=== PATIENT | female | born 1950 | race Caucasian/White ===

== ENCOUNTER 2021-12-15 22:21 | Observation (INO) | payer OTHER, SELFPAY ==
--- NOTE | ~2021-12-15 | CT_ITS ---
EXAMINATION: CTA brain carotid DATE: 12/16/2021 09:03 INDICATION: Stroke. TECHNIQUE: Computed tomographic angiography (CTA) of the head was performed without and with 100 mL O mnipaque-350 intravenous contrast. CTA of the neck was performed with intravenous contrast. Automated exposure control and iterative reconstruction technique were employed. The dose-length product was 1 514.65 mGy-cm. Maximum intensity projection and volume rendered 3D-reconstructions were created by lubna romero technologist on a separate workstation. COMPARISON: Head CT 02/07/2005, brain MRI 02/22/2015 FINDINGS: HEAD CTA: There is chronic encephalomalacia in left temporal lobe. There are changes of left-sided cr aniotomy. There is a 2.8 x 2.2 x 1.4 cm enhancing extra-axial mass left anterolateral to the russ, co nsistent with a meningioma. There are scattered areas of low attenuation in the cerebral white matter , which is within normal limits for the patient's age. There is an old lacunar infarct in right thal amus. There is no acute ischemic infarct or intracranial hemorrhage. The ventricles are normal in siz e. There is mild mucosal thickening in the paranasal sinuses. There are changes of left mastoidectomy . There is material in left tympanic cavity abutting the ossicles. There are likely changes of right ocular lens replacement surgery. The vertebral arteries are codominant. There is no significant steno sis of basilar artery or the posterior cerebral arteries. There is no significant stenosis of the int racranial internal carotid arteries or anterior or middle cerebral arteries. Anterior communicating a rtery is normal. Posterior communicating arteries are normal. There is no aneurysm. NECK CTA: There is mild emphysema. There are small pleural effusions. There is total occlusion of pro ximal left subclavian artery. There is no significant stenosis of the vertebral arteries. There is pl aque in the proximal internal carotid arteries. There is 52% stenosis of the proximal right internal carotid artery relative to normal distal artery lumen diameter (NASCET criteria). There is 41% stenos is of the proximal left internal carotid artery relative to normal distal artery lumen diameter. Ther e is mild cervical spondylosis. IMPRESSION: 1. Stable 2.8 cm left petrous ridge meningioma. 2. Chronic encephalomalacia in left temporal lobe. 3. Old lacunar infarct in right thalamus. 4. No aneurysm or significant intracranial internal stenosis. 5. 52% stenosis of the proximal right internal carotid artery relative to normal distal artery lumen diameter (NASCET criteria). 6. 41% stenosis of the proximal left internal carotid artery relative to normal distal artery lumen d iameter. 7. 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 8. Mild emphysema. Reviewed, dictated and finalized at location A. IMPRESSION: 1. Stable 2.8 cm left petrous ridge meningioma. 2. Chronic encephalomalacia in left temporal lobe. 3. Old lacunar infarct in right thalamus. 4. No aneurysm or significant intracranial internal stenosis. 5. 52% stenosis of the proximal right internal carotid artery relative to solo l distal artery lumen diameter (NASCET criteria). 6. 41% stenosis of the proximal left internal carotid artery relative to normal distal artery lumen diameter. 7. 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 8. Mild emphysema.
--- NOTE | ~2021-12-15 | XR_ITS ---
EXAMINATION: XR chest 2V Exam Date/Time: 12/15/2021 22:49 CDT HISTORY: weakness Comparison: 05/12/2015. RESULT: Lines, tubes, and devices: None. Lungs and pleura: Senescent changes. Cardiomediastinal silhouette: Stable. Other: No acute osseous or upper abdominal finding. IMPRESSION: No acute cardiopulmonary process. Reviewed, dictated and finalized at location K.
[2021-12-15 22:21] VITALS: BP 164/68; PULSE 64; RESP 18; TEMP 36.7; O2SAT 97
--- NOTE | 2021-12-15 22:32 | ECG_ITS ---
Measurements Intervals [place] Rate: 67 P: 57 MS: 188 QRS: 60 QRSD: 89 T: 70 QT: 413 QTc: 436 Interpretive Statements SINUS RHYTHM BASELINE ARTIFACT- I, II, III, AVR, AVL, AVF, V1-V6 NORMAL ECG NO PREVIOUS ECG AVAILABLE FOR COMPARISON Electronically Signed On 12-16-2021 6:54:24 CDT by Magdy Black D.O.
[2021-12-15 22:54] LABS: Basophils Percent Auto 0.4 % (0.2-1.2); Eosinophils Absolute Auto 0.4 K/mm3 (0-0.3); Eosinophils Percent Auto 4.1 % (0-4.4); Hemoglobin 13.6 g/dL (12.0-15.0); Immature Granulocyte Absolute 0.03 K/mm3 (0.00-0.031); Immature Granulocyte Percent A 0.3 % (0-0.5); Lymphocytes Absolute Auto 4.01 K/mm3 (0.9-3.2); Lymphocytes Percent Auto 42.5 % (18.3-44.2); Mean Corpuscular HGB Conc 32.4 g/dl (32-36); Mean Corpuscular Hemoglobin 31.1 pg (26-34); Mean Corpuscular Volume 96.1 fl (80-100); Mean Platelet Volume 11.8 fl (7.4-10.4); Monocytes Absolute Auto 0.7 K/mm3 (0.1-0.6); Monocytes Percent Auto 7.7 % (2.6-8.5); Neutrophils Absolute Auto 4.2 K/mm3 (1.3-6.7); Platelet Count Result 266 k/mm3 (150-375); Red Blood Count 4.37 M/mm3 (4.2-5.4); Red Cell Distribution Width 13.7 % (11.5-14.5); White Blood Count 9.4 K/mm3 (4.5-10.0)
--- NOTE | 2021-12-15 22:57 | PC.NURSE ---
pt in CT
[2021-12-15 23:06] LABS: Alanine Aminotransferase 21 U/L (6-35); Albumin Level 4.3 g/dL (3.5-5.1); Alkaline Phosphatase 52 U/L (38-126); Anion Gap 8 mmol/L (8-16); Aspartate Amino Transferase 25 U/L (14-36); Bilirubin,Total 0.4 mg/dL (0.2-1.3); Blood Urea Nitrogen 17 mg/dL (7-17); Calcium 9.2 mg/dL (8.4-10.2); Carbon Dioxide 29 mmol/L (22-30); Chloride 108 mmol/L (98-107); Estimated CRCL calculation 57 ml/min; Estimated Glomerular Filt Rate > 60; Glucose 122 mg/dL (65-110); Sodium 145 mmol/L (137-145)
[2021-12-15 23:16] LABS: Appearance Urine Clear (Clear); Bilirubin Urine Negative (Negative); Blood Urine Negative (Negative); Color Urine Yellow (Yellow); Glucose Urine UA Negative (Negative); Ketones Urine Negative (Negative); Leukocyte Esterase Ur 2+ LEU/UL (Negative); Nitrate Urine Positive (Negative); Protein Urine Negative (Negative); Specific Grav Ur 1.015 (1.001-1.035); Urobilinogen Urine 0.2 mg/dL (<2.0)
[2021-12-15 23:27] LABS: Add Urine Microscopic? YES; Bacteria Urine 4+ /hpf; Mucus Urine Rare /lpf
[2021-12-16] VITALS (10 sets, daily range): BP systolic 136–152; BP diastolic 53–70; PULSE 57–78; RESP 16–18; TEMP 35.7–36.6; O2SAT 94–97; BMI 28.4
--- NOTE | 2021-12-16 01:17 | ED.WEAKNESS ---
HPI - Weakness General Chief complaint: Weakness Stated complaint: L arm weakness History of Present Illness HPI Narrative: Patient is a 71-year-old female who presents ER with reports of weakness. Apparently patient's custodial she began having hallucinations thinking that there were police officers outside coming after him. There is then concern for possible strokelike symptom so EMS was called. Patient has history of previous CVA resulting in right-sided deficits. Patient reports no pain at this time. No additional concerns. Patient is unsure if she was having hallucinations but recalls nursing staff forgot therapy and please officers related to her visit. Related Data Home Medications Medication Instructions Recorded Confirmed Lactobacillus acidophilus 1 10 mg PO QAM 12/16/21 12/16/21 billion cell capsule (Probiotic Gold Acidophilus) albuterol sulfate 90 mcg/actuation 2 puff inhalation Q4-5H PRN Dyspnea 12/16/21 12/16/21 aerosol inhaler atorvastatin 40 mg tablet 40 mg PO QAM 12/16/21 12/16/21 cetirizine 10 mg tablet (Zyrtec) 10 mg PO QAM 12/16/21 12/16/21 citalopram 10 mg tablet 10 mg PO QAM 12/16/21 12/16/21 diclofenac potassium 50 mg tablet 50 mg PO BID 12/16/21 12/16/21 diphenhydramine HCl 25 mg tablet 25 mg PO QID PRN itching 12/16/21 12/16/21 (Allergy (diphenhydramine)) famotidine 20 mg tablet 20 mg PO BID 12/16/21 12/16/21 fenofibrate 160 mg tablet 160 mg PO QAM 12/16/21 12/16/21 fluticasone propionate 50 1 spray intranasal BID 12/16/21 12/16/21 mcg/actuation nasal spray,suspension lacosamide 100 mg tablet 100 mg PO HS 12/16/21 12/16/21 lacosamide 200 mg tablet 200 mg PO QAM 12/16/21 12/16/21 levetiracetam 500 mg tablet 500 mg PO BID 12/16/21 12/16/21 levothyroxine 200 mcg tablet 200 mcg PO QAM 12/16/21 12/16/21 loperamide 2 mg capsule 2 mg PO Q4H PRN Diarrhea 12/16/21 12/16/21 pramipexole 0.25 mg tablet 0.25 mg PO QPM 12/16/21 12/16/21 ropinirole 0.5 mg tablet 0.5 mg PO BID 12/16/21 12/16/21 tizanidine 2 mg tablet 2 mg PO BID PRN Muscle Spasm 12/16/21 12/16/21 tramadol 50 mg tablet 50 mg PO Q8-10H PRN Pain 12/16/21 12/16/21 Allergies Allergy/AdvReac Type Severity Reaction Status Date / Time Penicillins AdvReac Unknown Abdominal Verified 12/16/21 05:28 Pain morphine AdvReac Rash Verified 12/16/21 04:18 phenytoin [From Dilantin] AdvReac Rash Verified 12/16/21 04:15 Review of Systems Review of Systems: All systems reviewed & are unremarkable except as noted in HPI and below Constitutional: Constitutional: Denies chills, Denies fatigue and Denies fever(s) ENT: Denies nasal congestion and Denies sore throat Cardiovascular: Cardiovascular: Denies chest pain, Denies rapid heart rate and Denies radiating jaw, neck or arm pain Respiratory: Respiratory: Denies cough, Denies dyspnea and Denies wheezing Gastrointestinal: Gastrointestinal: Denies abdominal pain, Denies nausea and Denies vomiting Integumentary/Breasts: Skin/Breast: Denies erythema and Denies rash Neurologic: Denies syncope, Denies headache(s) and Reports focal weakness (Chronic right-sided weakness) [facility] Past Medical History Medical History (Updated 12/16/21 @ 05:51 by Juve Gilman MD) CVA (cerebral vascular accident) DJD (degenerative joint disease) Dyslipidemia Restless leg syndrome Surgical History Surgical History (Updated 12/16/21 @ 05:46 by Juve Gilman MD) No pertinent past surgical history Social History Social History Years smoked: 55 Smoking status: Current every day smoker Tobacco type: cigarettes Alcohol intake: never Substance use: never Has the Lack of Transportation Kept You From Medical Appointments or From Getting Medications?: No Within the Past 12 Months, Were You Worried Whether Your Food Would Run Out Before You Got Money to Buy More?: Never True What is Your Housing Situation Today?: I Have Housing Are You Worried That in the Next 2 Months, You May Not Have
--- NOTE | 2021-12-16 04:08 | PM.IMHP ---
H&P: HPI History of Present Illness Date/Time: 12/16/21 04:08 Chief Complaint: altered mental status Narrative: This is a 71-year-old female [facility] resident Past medical history significant for restless legs syndrome, seizure disorder, hypothyroidism, chronic pain, dyslipidemia, patient was brought for evaluation due to altered mental status, unable to give any history. Preliminary workup was essentially nonrevealing. Patient is been admitted for further evaluation management and treatment. a chest x-ray was reported as: IMPRESSION: No acute cardiopulmonary process. Review of Systems Review of Systems: ROS unobtainable: Yes unobtainable due to mental status ( confusion, restlessness, delirium) PMF[facility] Social History Social History Years smoked: 55 Smoking status: Current every day smoker Tobacco type: cigarettes Meds Home Medications and Allergies Home Medications Medication Instructions Recorded Confirmed Type albuterol sulfate 90 mcg/actuation 2 puff inhalation Q4-5H PRN Dyspnea 12/16/21 12/16/21 History aerosol inhaler atorvastatin 40 mg tablet 40 mg PO QAM 12/16/21 12/16/21 History cetirizine 10 mg tablet (Zyrtec) 10 mg PO QAM 12/16/21 12/16/21 History citalopram 10 mg tablet 10 mg PO QAM 12/16/21 12/16/21 History diclofenac potassium 50 mg tablet 50 mg PO BID 12/16/21 12/16/21 History diphenhydramine HCl 25 mg tablet 25 mg PO QID PRN itching 12/16/21 12/16/21 History (Allergy (diphenhydramine)) famotidine 20 mg tablet 20 mg PO BID 12/16/21 12/16/21 History fenofibrate 160 mg tablet 160 mg PO QAM 12/16/21 12/16/21 History fluticasone propionate 50 1 spray intranasal BID 12/16/21 12/16/21 History mcg/actuation nasal spray,suspension lacosamide 100 mg tablet 100 mg PO HS 12/16/21 12/16/21 History lacosamide 200 mg tablet 200 mg PO QAM 12/16/21 12/16/21 History levetiracetam 500 mg tablet 500 mg PO BID 12/16/21 12/16/21 History levothyroxine 200 mcg tablet 200 mcg PO QAM 12/16/21 12/16/21 History pramipexole 0.25 mg tablet 0.25 mg PO QPM 12/16/21 12/16/21 History ropinirole 0.5 mg tablet 0.5 mg PO BID 12/16/21 12/16/21 History tizanidine 2 mg tablet 2 mg PO BID PRN Muscle Spasm 12/16/21 12/16/21 History tramadol 50 mg tablet 50 mg PO Q8-10H PRN Pain 12/16/21 12/16/21 History Allergies Allergy/AdvReac Type Severity Reaction Status Date / Time Penicillins AdvReac Unknown Abdominal Unverified 12/16/21 00:46 Pain morphine AdvReac Rash Verified 12/16/21 04:18 phenytoin [From Dilantin] AdvReac Rash Verified 12/16/21 04:15 Vital Signs Vital Signs - 24 hr 12/15/21 22:21 Temperature 98.0 F Pulse Rate 64 Respiratory Rate 18 Blood Pressure 164/68 H Pulse Oximetry 97 Exam Narrative: patient is laying in a stretcher thrashing about Const: General: comfortable, no acute distress, well developed, alert, awake and average body habitus Nutritional Appearance: average body habitus Orientation/consciousness: oriented to person HENMT: Head: normal to inspection, normocephalic and atraumatic Ears: hearing grossly normal bilaterally Face/Nose/Sinus: normal facial exam Face and sinus: normal facial exam Eyes: General: appearance normal, both eyes and all related structures Pupils: Equal, round and reactive pupils present EOM: EOMs intact bilaterally Neck: Neck: full ROM, no lymphadenopathy and no JVD Thyroid: thyroid normal Lymphatic: no lymphadenopathy noted Resp: Effort & Inspection: normal respiratory effort and able to speak in complete sentences Auscultation: clear to auscultation bilaterally Cardio: Jugular venous distension: no JVD Rate: regular rate Rhythm: regular rhythm Heart sounds: S1 normal heart sound present and S2 normal heart sound present GI: GI Palp: Yes Soft to palpation and Yes No hepatosplenomegaly present : General: Yes deferred Skin: Rashes: no rashes Wounds: no wounds Neuro: General: oriented to person and CN's II-XI intact bi
--- NOTE | 2021-12-16 04:10 | ADMGEN ---
This patient, Summer Whitaker, was admitted to Medical Room 342-01. Patient/family oriented to hospital policies and general routines including ID bracelet, bed and alarms, visiting hours, pain management, procedures, bathroom and other care routines, personal items, smoking policy, room service/diet, and visiting hours. Information on how to activate the Rapid Response Team has been discussed. Patient/Family are encouraged to report perceived risks to care and to ask questions if they do not understand what they are told or what they should do.
[2021-12-16 05:00] LABS: SARS-CoV-2 RNA PCR Negative
--- NOTE | 2021-12-16 07:33 | PM.IMPN ---
Progress Note: A&P Assessment and Plan (1) Restless leg syndrome: Code(s): G25.81 - Restless legs syndrome Status: Acute Assessment and Plan: continue ropinirole (2) Dyslipidemia: Code(s): E78.5 - Hyperlipidemia, unspecified Status: Acute Assessment and Plan: continue fenofibrate (3) DJD (degenerative joint disease): Code(s): M19.90 - Unspecified osteoarthritis, unspecified site Status: Acute Assessment and Plan: continue pain management (4) UTI (urinary tract infection): Code(s): N39.0 - Urinary tract infection, site not specified Status: Acute Assessment and Plan: continue to ceftriaxone 1g in 50 ml IVPB 100 mls/hr q24hr (5) Acute metabolic encephalopathy: Code(s): G93.41 - Metabolic encephalopathy Status: Acute Assessment and Plan: unclear etiology although patient on a quite significant amount of drugs could be related to polypharmacy CT of the head in progress CONTINUE TO MONITOR supportive care urine with positive nitrates patient received ceftriaxone in emergency room (6) Hypothyroid: Code(s): E03.9 - Hypothyroidism, unspecified Status: Acute Assessment and Plan: continue home levothyroxine TSH ordered with reflux T4 (7) Seizure: Code(s): R56.9 - Unspecified convulsions Status: Acute Assessment and Plan: Continue levetiracetam Plan 12/16/21 Patient is well and resting comfortably in bed. She is alert and oriented x3 today. Urine positive for nitrates and Leukocyte esterase. Patient prescribed 1g in 50 ml IVPB Q24hr. Due to patients AMS upon admission CTA of head and neck were ordered. Imaging did not show any acute process. Urine cultures are pending. Continue supportive care. Subjective Date/time seen: 12/16/21 07:33 Interval history: Patient is pleasant and resting comfortably in bed. Review of Systems Constitutional: Constitutional: Reports weakness ENT: Denies dysphagia, Denies nasal congestion and Reports nasal discharge Cardiovascular: Cardiovascular: Denies palpitations Respiratory: Respiratory: Denies chest congestion, Reports cough, Denies dyspnea and Denies dyspnea on exertion Gastrointestinal: Gastrointestinal: Denies abdominal pain, Denies constipation, Reports diarrhea, Reports nausea and Denies vomiting Genitourinary: Genitourinary: Denies hematuria, Denies nocturia, Denies dysuria, Denies pelvic pain, Denies flank pain and Reports urinary incontinence Musculoskeletal: Musculoskeletal: Reports back pain Comments: low back pain Neurologic: Reports Abnormal speech present and Reports abnormal gait Comments: Patient has history of abnormal gait and speech due to past CVA Exam Const: General: comfortable, no acute distress, well developed, alert, awake and average body habitus Nutritional Appearance: average body habitus Orientation/consciousness: oriented to person Other: Oriented to person, place, time. Does not know why she is in the hospital. HENMT: Head: normal to inspection, normocephalic and atraumatic Ears: hearing grossly normal bilaterally Face/Nose/Sinus: normal facial exam Face and sinus: normal facial exam Eyes: General: appearance normal, both eyes and all related structures EOM: EOMs intact bilaterally Neck: Neck: full ROM, no lymphadenopathy and no JVD Thyroid: thyroid normal Lymphatic: no lymphadenopathy noted Resp: Effort & Inspection: normal respiratory effort and able to speak in complete sentences Auscultation: clear to auscultation bilaterally Cardio: Jugular venous distension: no JVD Rate: regular rate Rhythm: regular rhythm Heart sounds: S1 normal heart sound present and S2 normal heart sound present GI: GI Palp: Yes Soft to palpation Auscultation: normal bowel sounds : General: Yes deferred Skin: General skin exam: normal color and no rashes or lesions noted Neuro: Genera
[2021-12-16] MEDS: ATORVASTATIN 40 MG TABLET PO (08:18)
[2021-12-16] MEDS: LEVOTHYROXINE SODIUM 100 MCG TABLET 200 MCG PO (08:18)
[2021-12-16] MEDS: DICLOFENAC SOD 25 MG TABLET.EC 50 MG PO ×2 (08:18→17:08)
[2021-12-16] MEDS: FLUTICASONE PROPIONATE 0.05% NA SPR 16 GM BTL (*BKC) 1 SPRAY NASAL ×2 (08:19→17:08)
[2021-12-16] MEDS: CITALOPRAM HYDROBROMIDE 10 MG TABLET PO (08:19)
[2021-12-16] MEDS: FENOFIBRATE 160 MG TABLET PO (08:19)
[2021-12-16] MEDS: LORATADINE 10 MG TABLET PO (08:20)
[2021-12-16] MEDS: FAMOTIDINE 20 MG TABLET PO ×2 (08:20→17:08)
[2021-12-16] MEDS: rOPINIRole HCL 0.5 MG TABLET PO ×2 (08:20→17:08)
[2021-12-16] MEDS: levETIRAcetam 500 MG TABLET PO ×2 (08:20→20:31)
[2021-12-16] MEDS: LACOSAMIDE (*CRX) 200 MG TABLET PO (08:24)
[2021-12-16 08:40] LABS: Hematocrit 42.3 % (37.0-47.0); Hemoglobin 13.6 g/dL (12.0-15.0); Mean Corpuscular HGB Conc 32.2 g/dl (32-36); Mean Corpuscular Hemoglobin 30.7 pg (26-34); Mean Corpuscular Volume 95.5 fl (80-100); Mean Platelet Volume 11.8 fl (7.4-10.4); Platelet Count Result 267 k/mm3 (150-375); Red Blood Count 4.43 M/mm3 (4.2-5.4); Red Cell Distribution Width 13.5 % (11.5-14.5); White Blood Count 9.4 K/mm3 (4.5-10.0)
--- NOTE | 2021-12-16 08:40 | PC.NURSE ---
Patient off of unit to CT scan
[2021-12-16 08:48] LABS: Anion Gap 11 mmol/L (8-16); Blood Urea Nitrogen 13 mg/dL (7-17); Calcium 9.1 mg/dL (8.4-10.2); Carbon Dioxide 28 mmol/L (22-30); Chloride 108 mmol/L (98-107); Estimated CRCL calculation 57 ml/min; Estimated Glomerular Filt Rate > 60; Glucose 142 mg/dL (65-110); Potassium 4.2 mmol/L (3.4-5.0); Sodium 147 mmol/L (137-145)
--- NOTE | 2021-12-16 09:19 | PC.NURSE ---
Patient returned to unit
[2021-12-16] MEDS: ACIDOPHILUS/BULGARICUS CHEWABLE TABLET 1 TABLET PO (12:07)
[2021-12-16] MEDS: PRAMIPEXOLE 0.25 MG TABLET PO (17:08)
[2021-12-16] MEDS: LACOSAMIDE (*CRX) 100 MG TABLET PO (20:31)
[2021-12-17 00:11] VITALS: BP 144/59; PULSE 61; RESP 16; TEMP 37; O2SAT 96
[2021-12-17 05:41] VITALS: BP 158/66; PULSE 68; RESP 18; TEMP 36.4; O2SAT 97
[2021-12-17] MEDS: LEVOTHYROXINE SODIUM 100 MCG TABLET 200 MCG PO (05:58)
[2021-12-17] MEDS: LACOSAMIDE (*CRX) 200 MG TABLET PO (05:58)
[2021-12-17 06:13] LABS: Basophils Percent Auto 0.5 % (0.2-1.2); Eosinophils Absolute Auto 0.3 K/mm3 (0-0.3); Eosinophils Percent Auto 3.4 % (0-4.4); Hematocrit 39.1 % (37.0-47.0); Hemoglobin 12.7 g/dL (12.0-15.0); Immature Granulocyte Absolute 0.03 K/mm3 (0.00-0.031); Immature Granulocyte Percent A 0.3 % (0-0.5); Lymphocytes Percent Auto 47.7 % (18.3-44.2); Mean Corpuscular HGB Conc 32.5 g/dl (32-36); Mean Corpuscular Hemoglobin 30.6 pg (26-34); Mean Corpuscular Volume 94.2 fl (80-100); Mean Platelet Volume 11.5 fl (7.4-10.4); Monocytes Absolute Auto 0.7 K/mm3 (0.1-0.6); Monocytes Percent Auto 7.4 % (2.6-8.5); Neutrophils Absolute Auto 3.6 K/mm3 (1.3-6.7); Neutrophils Percent Auto 40.7 % (45.5-73.1); Platelet Count Result 253 k/mm3 (150-375); Red Blood Count 4.15 M/mm3 (4.2-5.4); Red Cell Distribution Width 13.6 % (11.5-14.5); White Blood Count 8.8 K/mm3 (4.5-10.0)
[2021-12-17 06:29] LABS: Alanine Aminotransferase 20 U/L (6-35); Albumin Level 3.8 g/dL (3.5-5.1); Alkaline Phosphatase 48 U/L (38-126); Anion Gap 8 mmol/L (8-16); Aspartate Amino Transferase 25 U/L (14-36); Bilirubin,Total 0.3 mg/dL (0.2-1.3); Blood Urea Nitrogen 14 mg/dL (7-17); Calcium 8.5 mg/dL (8.4-10.2); Carbon Dioxide 27 mmol/L (22-30); Chloride 108 mmol/L (98-107); Estimated CRCL calculation 51 ml/min; Estimated Glomerular Filt Rate > 60; Glucose 122 mg/dL (65-110); Magnesium 1.9 mg/dL (1.6-2.3); Potassium 3.5 mmol/L (3.4-5.0); Sodium 143 mmol/L (137-145)
[2021-12-17] MEDS: FLUTICASONE PROPIONATE 0.05% NA SPR 16 GM BTL (*BKC) 1 SPRAY NASAL (10:32)
[2021-12-17] MEDS: DICLOFENAC SOD 25 MG TABLET.EC 50 MG PO (10:32)
[2021-12-17] MEDS: ENOXAPARIN 40 MG/0.4 ML SYRINGE SUB-Q (10:33)
[2021-12-17] MEDS: FENOFIBRATE 160 MG TABLET PO (10:33)
[2021-12-17] MEDS: FAMOTIDINE 20 MG TABLET PO (10:33)
[2021-12-17] MEDS: LORATADINE 10 MG TABLET PO (10:33)
[2021-12-17] MEDS: CITALOPRAM HYDROBROMIDE 10 MG TABLET PO (10:33)
[2021-12-17] MEDS: levETIRAcetam 500 MG TABLET PO (10:33)
[2021-12-17] MEDS: ATORVASTATIN 40 MG TABLET PO (10:33)
[2021-12-17] MEDS: ACIDOPHILUS/BULGARICUS CHEWABLE TABLET 1 TABLET PO (10:33)
[2021-12-17] MEDS: rOPINIRole HCL 0.5 MG TABLET PO (10:34)
[2021-12-17 12:00] VITALS: BP 127/72; PULSE 71; RESP 20; TEMP 36.5; O2SAT 97
--- NOTE | 2021-12-17 12:54 | PM.DS ---
DS: Admitting Diagnosis Discharge Date 12/17/21 Admitting Diagnosis acute metabolic encephalopathy DS: Discharge Diagnosis Discharge Diagnosis (1) Acute metabolic encephalopathy: Code(s): G93.41 - Metabolic encephalopathy Status: Acute Assessment and Plan: could be related to polypharmacy CT of head no acute findings CONTINUE TO MONITOR supportive care urine with positive nitrates (2) UTI (urinary tract infection): Code(s): N39.0 - Urinary tract infection, site not specified Status: Acute Assessment and Plan: patient started on cefdinir 300mg q12 hr x5 days pt symptoms are improved urine cultures pending (3) Restless leg syndrome: Code(s): G25.81 - Restless legs syndrome Status: Acute Assessment and Plan: continue ropinirole (4) Dyslipidemia: Code(s): E78.5 - Hyperlipidemia, unspecified Status: Acute Assessment and Plan: continue fenofibrate (5) DJD (degenerative joint disease): Code(s): M19.90 - Unspecified osteoarthritis, unspecified site Status: Acute Assessment and Plan: continue pain management (6) Hypothyroid: Code(s): E03.9 - Hypothyroidism, unspecified Status: Acute Assessment and Plan: continue home levothyroxine (7) Seizure: Code(s): R56.9 - Unspecified convulsions Status: Acute Assessment and Plan: Continue levetiracetam DS: Summary Hospital Course Reason for hospitalization: metabolic encephalopathy Hospital Course: Patient presented to the floor agitated and unable to respond to questions. She was admitted under acute metabolic encephalopathy diagnosis. CT of head and neck did not reveal any acute process. Lab results showed UTI with positive nitrites and leukocytes. Pt started on ceftriaxone 1 g IVPB q24hr. Once antibiotics were started patient regained awareness to person, place and time. On final day in hospital patient reported feeling much better and eager to go home. Urine cultures are still pending and pt will be contacted if antibiotic needs to be changed. Patient being sent home with cefdinir 300 mg q12hr x5 days. Status at Discharge Functional status at discharge: uses cane/walker Time Spent with Patient Time attestation: Total time spent providing and/or coordinating discharge services: Time spent: Greater than 30 minutes Exam Const: General: comfortable, no acute distress, well developed, alert, awake and average body habitus Nutritional Appearance: average body habitus Orientation/consciousness: oriented to person Other: Oriented to person, place, time. Does not know why she is in the hospital. HENMT: Head: normal to inspection, normocephalic and atraumatic Ears: hearing grossly normal bilaterally Face/Nose/Sinus: normal facial exam Face and sinus: normal facial exam Eyes: General: appearance normal, both eyes and all related structures Pupils: Equal, round and reactive pupils present EOM: EOMs intact bilaterally Neck: Neck: full ROM, no lymphadenopathy and no JVD Thyroid: thyroid normal Lymphatic: no lymphadenopathy noted Resp: Effort & Inspection: normal respiratory effort and able to speak in complete sentences Auscultation: clear to auscultation bilaterally Cardio: Jugular venous distension: no JVD Rate: regular rate Rhythm: regular rhythm Heart sounds: S1 normal heart sound present and S2 normal heart sound present GI: Auscultation: normal bowel sounds : General: Yes deferred Skin: General skin exam: normal color and no rashes or lesions noted Rashes: no rashes Wounds: no wounds Neuro: General: oriented to person and CN's II-XI intact bilaterally Cranial nerves: Yes CN's II-XII intact bilaterally and Yes Equal, round and reactive pupils present Cognition (Neuro): abnormal cognition ( delirious, restless) Speech: normal speech and Abnormal speech present Gait
== END 2021-12-17 16:10 ==
LOC: ANHED 12-16 01:53 → ANH3MED 12-16 05:50
PROVIDERS: Admitting Provider Internal Medicine; Emergency Provider Emergency Medicine; PCP Internal Medicine; Visit Provider Internal Medicine Critical Care Medicine
DX: G93.41 Metabolic encephalopathy (principal); N39.0 Urinary tract infection, site not specified; G25.81 Restless legs syndrome; E78.5 Hyperlipidemia, unspecified; M19.90 Unspecified osteoarthritis, unspecified site; E03.9 Hypothyroidism, unspecified; R56.9 Unspecified convulsions; D32.0 Benign neoplasm of cerebral meninges; G93.89 Other specified disorders of brain; J43.9 Emphysema, unspecified; R53.1 Weakness; I65.23 Occlusion and stenosis of bilateral carotid arteries; Z20.822 Contact with and (suspected) exposure to COVID-19; R44.3 Hallucinations, unspecified; I69.351 Hemiplegia and hemiparesis following cerebral infarction affecting right dominant side; F17.210 Nicotine dependence, cigarettes, uncomplicated; Z79.51 Long term (current) use of inhaled steroids; Z79.891 Long term (current) use of opiate analgesic; Z79.899 Other long term (current) drug therapy
CPT/HCPCS: 36415; 70496; 70498; 71046; 80048; 80053; 81001; 83735; 85025; 85027; 87086; 87088; 93005; 96365; 96372; 99285; A9270; G0378; G0379; J0696; J1650; Q9967; U0003; U0005

== ENCOUNTER 2023-06-09 18:18 | Inpatient (IN) | payer OTHER, SELFPAY ==
[2023-06-09] VITALS (17 sets, daily range): BP systolic 124–168; BP diastolic 54–92; PULSE 68–86; RESP 14–22; TEMP 36.6–36.8; O2SAT 94–100
--- NOTE | ~2023-06-09 | XR_ITS ---
EXAMINATION: XR chest 1V DATE: 06/09/2023 19:26 INDICATION: Stroke. Right leg weakness. TECHNIQUE: A single frontal view of the chest was obtained. COMPARISON: Chest 2 views 12/15/2021 FINDINGS: There is no pneumonia, pleural effusion, or pneumothorax. The heart size is normal. IMPRESSION: 1. No acute cardiopulmonary disease. Reviewed, dictated and finalized at location E.
--- NOTE | ~2023-06-09 | MR_ITS ---
EXAMINATION: MR brain/brain stem wo/w con DATE: 06/10/2023 12:17 INDICATION: Stroke. TECHNIQUE: Magnetic resonance imaging (MRI) of the brain and brainstem was performed without and with 14 mL MultiHance intravenous contrast. COMPARISON: Brain MRI 02/22/15, head CT 06/09/23 FINDINGS: There is no acute ischemic infarct or intracranial hemorrhage. There is chronic encephaloma lacia involving left temporal lobe. There is chronic encephalomalacia involving left side of the russ and left middle cerebellar peduncle. There are scattered areas of nonspecific increased T2-weighted signal intensity in the cerebral white matter, which is within normal limits for the patient's age. T here is a 2.1 x 2.3 x 1.6 cm left petrous ridge meningioma. There is an old infarct in the right thal amus. The ventricles are normal in size. There is mucosal thickening in the paranasal sinuses. There are likely changes of right ocular lens replacement surgery. There are bilateral mastoid effusions. T here are changes of left-sided craniotomy and mastoidectomy. IMPRESSION: 1. 2.3 cm left petrous ridge meningioma, stable from 02/22/15. 2. Chronic encephalomalacia involving left temporal lobe, russ, and left middle cerebellar peduncle. 3. Old lacunar infarct in the right thalamus. Reviewed, dictated and finalized at location A.
--- NOTE | ~2023-06-09 | CT_ITS ---
EXAMINATION: CTA brain carotid DATE: 06/09/2023 19:24 INDICATION: Right leg numbness. TECHNIQUE: Computed tomographic angiography (CTA) of the head was performed without and with 100 mL O mnipaque-350 intravenous contrast. CTA of the neck was performed with intravenous contrast. Automated exposure control and iterative reconstruction technique were employed. The dose-length product was 1 618.23 mGy-cm. Maximum intensity projection and volume rendered 3D-reconstructions were created by lubna romero technologist on a separate workstation. COMPARISON: CTA head and neck 12/16/2021 FINDINGS: HEAD CTA: There is chronic encephalomalacia in left temporal lobe. There are changes of left-sided cr aniotomy. There is a 2.5 x 2.2 x 1.6 cm enhancing extra-axial mass anterolateral to the russ on the l eft, consistent with a meningioma. There are scattered areas of low attenuation in the cerebral white matter, which is within normal limits for the patient's age. There is an old lacunar infarct in the right thalamus. There is no acute ischemic infarct or intracranial hemorrhage. The ventricles are nor mal in size. There is a right mastoid effusion. There are changes of left mastoidectomy. There is mat erial in the post-mastoidectomy space, tympanic cavity, and external artery canal. There is mucosal t hickening in the paranasal sinuses. There are likely changes of right ocular lens replacement surgery . The vertebral arteries are codominant. There is no significant stenosis of basilar artery or the po sterior cerebral arteries. There is no significant stenosis of intracranial internal carotid arteries or anterior or middle cerebral arteries. Anterior communicating artery is normal. The posterior comm unicating arteries are normal. There is no aneurysm. NECK CTA: There is mild emphysema. There is mild scarring at the lung apices. There are no pathologic ally enlarged lymph nodes. There is no significant stenosis of the vertebral arteries. There is total occlusion of proximal left subclavian artery. There is plaque in the proximal internal carotid arter ies. There is 31% stenosis of the proximal right internal carotid artery relative to normal distal ar [place] lumen diameter (NASCET criteria). There is 38% stenosis of the proximal left internal carotid ar davis relative to normal distal artery lumen diameter. There is moderate cervical spondylosis. IMPRESSION: 1. 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 2. Chronic encephalomalacia in left temporal lobe. 3. Old lacunar infarct in right thalamus. 4. No aneurysm or significant intracranial arterial stenosis. 5. 31% stenosis of the proximal right internal carotid artery relative to normal distal artery lumen diameter (NASCET criteria). 6. 38% stenosis of the proximal left internal carotid artery relative to normal distal artery lumen d iameter. 7. 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 8 . Mild emphysema. Reviewed, dictated and finalized at location E. IMPRESSION: 1. 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 2. Chronic encephalomalacia in left temporal lobe. 3. Old lacunar infarct in right thalamus. 4. No aneurysm or significant intracranial arterial stenosis. 5. 31% stenosis of the proximal right internal carotid artery relative to solo l distal artery lumen diameter (NASCET criteria). 6. 38% stenosis of the proximal left internal carotid artery relative to normal distal artery lumen diameter. 7. 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 8 . Mild emphysema.
--- NOTE | 2023-06-09 18:39 | PC.NURSE ---
pt states they do not have incontinence. since pt could not walk to the bathroom, staff at [facility] did not respond quick enough to provide bed van for patient
--- NOTE | 2023-06-09 18:41 | ECG_ITS ---
SEE SCANNED COPY FOR CONFIRMED REPORT MTDD
--- NOTE | 2023-06-09 18:42 | ED.GENADULT ---
HPI - General Adult General Chief complaint: Extremity Injury, Lower Stated complaint: right leg numbness Time Seen by Provider: 06/09/23 18:32 History of Present Illness HPI narrative: Patient is a 73 year old female with history of CVA, prior brain tumor with partial resection in the here with acute onset right leg weakness and numbness. Patient notes symptoms began around 3-330 PM. Patient notes her last stroke was about 20-25 years ago, has had some speech deficits since that time. She notes chronic back pain, not currently present. EMS initially was concerned over new onset urinary incontinence but on discussion with patient, she had to go to the bathroom while she was sitting waiting for the ambulance and she was advised to urinate on herself as she could not walk. She typically walks with a walker. She denies current blood thinner use. No trauma. Related Data Home Medications Medication Instructions Recorded Confirmed Lactobacillus acidophilus 1 10 mg PO QAM 12/16/21 12/16/21 billion cell capsule (Probiotic Gold Acidophilus) albuterol sulfate 90 mcg/actuation 2 puff inhalation Q4-5H PRN Dyspnea 12/16/21 12/16/21 aerosol inhaler atorvastatin 40 mg tablet 40 mg PO QAM 12/16/21 12/16/21 cetirizine 10 mg tablet (Zyrtec) 10 mg PO QAM 12/16/21 12/16/21 citalopram 10 mg tablet 10 mg PO QAM 12/16/21 12/16/21 diclofenac potassium 50 mg tablet 50 mg PO BID 12/16/21 12/16/21 diphenhydramine HCl 25 mg tablet 25 mg PO QID PRN itching 12/16/21 12/16/21 (Allergy (diphenhydramine)) famotidine 20 mg tablet 20 mg PO BID 12/16/21 12/16/21 fenofibrate 160 mg tablet 160 mg PO QAM 12/16/21 12/16/21 fluticasone propionate 50 1 spray intranasal BID 12/16/21 12/16/21 mcg/actuation nasal spray,suspension lacosamide 100 mg tablet 100 mg PO HS 12/16/21 12/16/21 lacosamide 200 mg tablet 200 mg PO QAM 12/16/21 12/16/21 levothyroxine 200 mcg tablet 200 mcg PO QAM 12/16/21 12/16/21 loperamide 2 mg capsule 2 mg PO Q4H PRN Diarrhea 12/16/21 12/16/21 pramipexole 0.25 mg tablet 0.25 mg PO QPM 12/16/21 12/16/21 ropinirole 0.5 mg tablet 0.5 mg PO BID 12/16/21 12/16/21 tizanidine 2 mg tablet 2 mg PO BID PRN Muscle Spasm 12/16/21 12/16/21 tramadol 50 mg tablet 50 mg PO Q8-10H PRN Pain 12/16/21 12/16/21 levetiracetam 500 mg tablet 1,000 mg PO BID 03/26/22 03/26/22 Allergies Allergy/AdvReac Type Severity Reaction Status Date / Time aspirin Allergy Unknown Verified 06/09/23 19:08 Sulfa (Sulfonamide Allergy Unknown Verified 06/09/23 19:08 Antibiotics) Tetracyclines Allergy Unknown Verified 06/09/23 19:08 Iodinated Contrast Media AdvReac Mild Rash Verified 06/09/23 19:08 Penicillins AdvReac Unknown Abdominal Verified 06/09/23 19:08 Pain morphine AdvReac Rash Verified 06/09/23 19:08 phenytoin [From Dilantin] AdvReac Rash Verified 06/09/23 19:08 Review of Systems Review of Systems: All systems reviewed & are unremarkable except as noted in HPI and below PMFSH Past Medical History Medical History (Updated 06/09/23 @ 21:45 by Kanika Rivera MD) CVA (cerebral vascular accident) DJD (degenerative joint disease) Dyslipidemia Restless leg syndrome Surgical History Surgical History (Updated 03/26/22 @ 13:00 by Jessica Villagomez MA) H/O chest tube placement No pertinent past surgical history Social History Social History (Updated 03/26/22 @ 13:01 by Jessica Villagomez MA) Years smoked: 55 Smoking status: Current every day smoker Tobacco type: cigarettes Alcohol intake: never Substance use: never Lack of Transportation: No Lack of Food: Never True Current Housing: I Have Housing Concerned About Future Housing: No Difficulty Paying Gas/Electric Bills: No Difficulty Paying for Meds: No Currently Unemployed: No Education: Grade School Difficulty w/ Childcare or Family Care: No Spiritual care concerns: No Exam Narrative: GENERAL: Well-appearing, well-nourished, and in no acute distress.
[2023-06-09 19:08] LABS: Basophils Absolute Auto 0.1 K/mm3 (0.0-0.1); Basophils Percent Auto 0.6 % (0.2-1.2); Eosinophils Absolute Auto 0.5 K/mm3 (0-0.3); Eosinophils Percent Auto 4.7 % (0-4.4); Hemoglobin 12.1 g/dL (12.0-15.0); Immature Granulocyte Absolute 0.04 K/mm3 (0.00-0.031); Immature Granulocyte Percent A 0.4 % (0-0.5); Lymphocytes Absolute Auto 4.63 K/mm3 (0.9-3.2); Lymphocytes Percent Auto 41.5 % (18.3-44.2); Mean Corpuscular Hemoglobin 29.9 pg (26-34); Mean Corpuscular Volume 96.3 fl (80-100); Mean Platelet Volume 12.2 fl (7.4-10.4); Monocytes Absolute Auto 0.8 K/mm3 (0.1-0.6); Monocytes Percent Auto 7.3 % (2.6-8.5); Neutrophils Absolute Auto 5.1 K/mm3 (1.3-6.7); Neutrophils Percent Auto 45.5 % (45.5-73.1); Platelet Count Result 303 k/mm3 (150-375); Red Blood Count 4.05 M/mm3 (4.2-5.4); Red Cell Distribution Width 13.2 % (11.5-14.5); White Blood Count 11.2 K/mm3 (4.5-10.0)
[2023-06-09 19:11] LABS: Estimated CRCL calculation 36 ml/min; Estimated Glomerular Filt Rate 40
[2023-06-09 19:19] LABS: Alanine Aminotransferase 19 U/L (6-35); Albumin Level 4.2 g/dL (3.5-5.1); Alkaline Phosphatase 53 U/L (38-126); Anion Gap 7 mmol/L (4-12); Aspartate Amino Transferase 23 U/L (14-36); Bilirubin,Total 0.4 mg/dL (0.2-1.3); Blood Urea Nitrogen 34 mg/dL (7-17); Calcium 9.4 mg/dL (8.4-10.2); Carbon Dioxide 31 mmol/L (22-30); Chloride 105 mmol/L (98-107); Estimated CRCL calculation 39 ml/min; Estimated Glomerular Filt Rate 44; Glucose 155 mg/dL (65-110); Sodium 143 mmol/L (137-145)
[2023-06-09 19:25] LABS: Ethanol < 10 mg/dL (<10)
[2023-06-09 19:31] LABS: Troponin I < 0.012 ng/mL (0.000-0.034)
[2023-06-09 19:49] LABS: INR 1.1; Partial Thromboplastin Time 29.4 Seconds (22.3-36.8); Prothrombin Time 14.2 Seconds (11.1-14.7)
[2023-06-09 20:19] LABS: Appearance Urine Clear (Clear); Bacteria Urine 4+ /hpf; Bilirubin Urine Negative (Negative); Blood Urine Negative (Negative); Color Urine Yellow (Yellow); Glucose Urine UA Negative (Negative); Ketones Urine Negative (Negative); Leukocyte Esterase Ur Negative LEU/UL (Negative); Nitrate Urine Positive (Negative); Non Pathogenic Casts 0-2; Protein Urine Negative (Negative); RBC Urine 0-2 /hpf (0-2); Specific Grav Ur 1.009 (1.001-1.035); Squamous Epithelial Cell Urine None Seen /hpf (Few); Urobilinogen Urine 0.2 mg/dL (<2.0); WBC Urine 0-5 /hpf (0-3)
[2023-06-09 20:21] LABS: Add Urine Microscopic? YES
--- NOTE | 2023-06-09 22:19 | PM.IMHP ---
H&P: HPI History of Present Illness Date/Time: 06/09/23 22:19 Chief Complaint: right leg weakness Narrative: this is a 73-year-old female with past medical history significant for stroke, right lower extremity weakness, senior care resident. Presents to the emergency room today after having episode of non in and tingling of the right lower extremity and feeling more weak than usual. Patient was brought to the emergency room for evaluation. Preliminary workup was significant for urinalysis is numerous WBCs present. patient has been admitted for further evaluation management and treatment. EXAMINATION: CTA brain carotid DATE: 06/09/2023 19:24 INDICATION: Right leg numbness. TECHNIQUE: Computed tomographic angiography (CTA) of the head was performed without and with 100 mL Omnipaque-350 intravenous contrast. CTA of the neck was performed with intravenous contrast. Automated exposure control and iterative reconstruction technique were employed. The dose-length product was 1618.23 mGy-cm. Maximum intensity projection and volume rendered 3D-reconstructions were created by the technologist on a separate workstation. COMPARISON: CTA head and neck 12/16/2021 FINDINGS: HEAD CTA: There is chronic encephalomalacia in left temporal lobe. There are changes of left-sided craniotomy. There is a 2.5 x 2.2 x 1.6 cm enhancing extra-axial mass anterolateral to the russ on the left, consistent with a meningioma. There are scattered areas of low attenuation in the cerebral white matter, which is within normal limits for the patient's age. There is an old lacunar infarct in the right thalamus. There is no acute ischemic infarct or intracranial hemorrhage. The ventricles are normal in size. There is a right mastoid effusion. There are changes of left mastoidectomy. There is material in the post-mastoidectomy space, tympanic cavity, and external artery canal. There is mucosal thickening in the paranasal sinuses. There are likely changes of right ocular lens replacement surgery. The vertebral arteries are codominant. There is no significant stenosis of basilar artery or the posterior cerebral arteries. There is no significant stenosis of intracranial internal carotid arteries or anterior or middle cerebral arteries. Anterior communicating artery is normal. The posterior communicating arteries are normal. There is no aneurysm. NECK CTA: There is mild emphysema. There is mild scarring at the lung apices. There are no pathologically enlarged lymph nodes. There is no significant stenosis of the vertebral arteries. There is total occlusion of proximal left subclavian artery. There is plaque in the proximal internal carotid arteries. There is 31% stenosis of the proximal right internal carotid artery relative to normal distal artery lumen diameter (NASCET criteria). There is 38% stenosis of the proximal left internal carotid artery relative to normal distal artery lumen diameter. There is moderate cervical spondylosis. IMPRESSION: 1. 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 2. Chronic encephalomalacia in left temporal lobe. 3. Old lacunar infarct in right thalamus. 4. No aneurysm or significant intracranial arterial stenosis. 5. 31% stenosis of the proximal right internal carotid artery relative to normal distal artery lumen diameter (NASCET criteria). 6. 38% stenosis of the proximal left internal carotid artery relative to normal distal artery lumen diameter. 7. 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 8 . Mild emphysema. EXAMINATION: XR chest 1V DATE: 06/09/2023 19:26 INDICATION: Stroke. Right leg weakness. TECHNIQUE: A single frontal view of the chest was obtained. COMPARISON: Chest 2 views 12/15/2021 FINDINGS: There is no pneumonia, pleural effusion, or pneumothorax. The heart size is normal. IMPRESSION: 1. No acute cardiopulmonary disease. Review of Syste
--- NOTE | 2023-06-09 23:07 | PC.NURSE ---
care and report given to ALTON Joseph. all questions answered.
[2023-06-10] VITALS (11 sets, daily range): BP systolic 104–166; BP diastolic 44–63; PULSE 66–72; RESP 13–18; TEMP 36–36.4; O2SAT 92–96; BMI 26.8
--- NOTE | 2023-06-10 | ECHO_ITS ---
Patient Info Name: Summer Whitaker Age: 73 years : 1950 Gender: Female Ht: 65 in Wt: 161 lbs BSA: 1.85 m2 HR: 62 bpm BP: 104 / 49 mmHg Technical Quality: Fair Exam Date: 06/10/2023 9:07 AM Exam Location: Echo Lab Patient Status: Inpatient Admit Date: 06/09/2023 Staff Ordering Physician: Semaj Mercado APRN Unarmed Security Guard: Tirso Cevallos RDCS Attending Provider: Quin Randhawa MD Referring Physician: Rogelio SEBASTIAN; Exam Type: CA echo doppler w bubble study Study Info Indications - Stroke Complete two-dimensional, color flow and Doppler transthoracic echocardiogram is performed with agitated saline. Contrast/Agitated Saline Contrast/Ag. Saline: Agitated Saline Amount: 14.00 ml IV Access Condition: patent with no signs of infiltration Summary 1. Left ventricular chamber dimension is normal. 2. Left ventricular systolic function is normal, estimated at 60-65%. 3. The left ventricular diastolic function is grade I diastolic dysfunction. 4. E/e '11 is mildly elevated. 5. There is mild aortic valve regurgitation. 6. There is trace tricuspid valve regurgitation. 7. No pulmonary hypertension, estimated pulmonary arterial systolic pressure is 25 mmHg. Left Ventricle E/e '11 is mildly elevated. Left ventricular chamber dimension is normal. Left ventricular systolic function is normal, estimated at 60-65%. The left ventricular diastolic function is grade I diastolic dysfunction. Right Ventricle Right ventricular systolic function is normal and with normal TAPSE 2.0 cm. Right ventricular chamber dimension is normal. Left Atria Left atrial chamber dimension is normal. Right Atria Right atrial chamber dimension is normal. Atrial Septum Agitated saline injection with and without valsalva maneuver opacified right side cardiac chambers without shunt to left side cardiac chambers. Intact interatrial septum visualized by 2D and agitated saline imaging. Aortic Valve The aortic valve is trileaflet. There is no aortic valve stenosis. There is mild aortic valve regurgitation. Pulmonic Valve There is no pulmonic regurgitation. Mitral Valve There is no mitral valve stenosis. There is no mitral valve regurgitation. Tricuspid Valve There is trace tricuspid valve regurgitation. No pulmonary hypertension, estimated pulmonary arterial systolic pressure is 25 mmHg. Pericardium/Pleural There is no pericardial effusion. Inferior Vena Cava Normal inferior vena cava with >50% collapse upon inspiration consistent with normal right atrial pressure, 5 mmHg. Aorta The aortic root size at the sinus of Valsalva is normal. Left Ventricular Outflow Tract Name Value Normal LVOT 2D LVOT Diameter 1.9 cm LVOT Doppler LVOT Peak Gradient 3 mmHg LVOT Mean Gradient 2 mmHg LVOT VTI 20 cm LVOT VTI/AV VTI Ratio 0.8 LVOT Stroke Volume 58 ml LVOT CO 3.7 l/min LVOT CI 2.0 l/min/m2 Pulmonic Valve
--- NOTE | 2023-06-10 00:04 | ADMGEN ---
This patient, Summer Whitaker, was admitted to [facility] Surg Room 321-02. Patient/family oriented to hospital policies and general routines including ID bracelet, bed and alarms, visiting hours, pain management, procedures, bathroom and other care routines, personal items, smoking policy, room service/diet, and visiting hours. Information on how to activate the Rapid Response Team has been discussed. Patient/Family are encouraged to report perceived risks to care and to ask questions if they do not understand what they are told or what they should do.
[2023-06-10] MEDS: LEVOTHYROXINE SODIUM 100 MCG TABLET 200 MCG PO (05:50)
[2023-06-10] MEDS: CITALOPRAM HYDROBROMIDE 10 MG TABLET PO (10:05)
[2023-06-10] MEDS: PRAMIPEXOLE 0.25 MG TABLET PO (10:06)
[2023-06-10] MEDS: LACOSAMIDE (*CRX) 200 MG TABLET PO (10:07)
[2023-06-10] MEDS: MECLIZINE HCL 25 MG TABLET PO (10:07)
[2023-06-10] MEDS: rOPINIRole HCL 0.5 MG TABLET PO ×2 (10:07→20:51)
[2023-06-10] MEDS: PANTOPRAZOLE 40 MG TABLET PO ×2 (10:09→20:50)
[2023-06-10] MEDS: ARIPiprazole 2 MG TABLET PO (10:09)
--- NOTE | 2023-06-10 10:09 | PM.IMPN ---
Progress Note: A&P Assessment and Plan (1) Acute UTI: Code(s): N39.0 - Urinary tract infection, site not specified Status: Acute Assessment and Plan: admit to med tele patient started on Rocephin await cultures (2) Right leg weakness: Code(s): R29.898 - Other symptoms and signs involving the musculoskeletal system Status: Acute Assessment and Plan: CTA of head and neck with no acute changes neurochecks q.4 06/09: MRI negative for acute stroke, felt to be related to chronic right hip pain (3) Restless leg syndrome: Code(s): G25.81 - Restless legs syndrome Status: Acute Assessment and Plan: unchanged (4) DJD (degenerative joint disease): Code(s): M19.90 - Unspecified osteoarthritis, unspecified site Status: Acute Assessment and Plan: unchanged Time Spent With Patient Time: Admitted overnight, continue IV antibiotics for apparent UTI, stroke workup negative, defer neurology consult at this time Time with patient: 25 - 35 minutes Subjective Date/time seen: 06/10/23 10:09 Interval history: Saw patient this morning, she is back to baseline status. Family at bedside states that she is sometimes choking on her own saliva but she is not choking eating food or taking meds or drinking her coffee. She has full strength of right upper and lower extremity, chronic pain in the right hip but no other complaints. Ordered workup for possible stroke including MRI, echocardiogram with bubble study and lipid panel. Patient is allergic to aspirin. Lipid panel shows LDL at 71 with elevated triglycerides but unknown if this was a fasting sample. MRI does not show any area of acute stroke. Patient is being treated for suspected UTI with IV antibiotics. Review of Systems Review of Systems: Chronic right hip pain All systems reviewed & are unremarkable except as noted in HPI and below Exam Narrative: laying in a stretcher Const: General: comfortable, no acute distress, well developed, alert, awake and average body habitus Nutritional Appearance: average body habitus Orientation/consciousness: patient oriented x3 HENMT: Head: normal to inspection, normocephalic and atraumatic Ears: hearing grossly normal bilaterally Face/Nose/Sinus: normal facial exam Face and sinus: normal facial exam Eyes: General: appearance normal, both eyes and all related structures Pupils: Equal, round and reactive pupils present EOM: EOMs intact bilaterally Neck: Neck: full ROM, no lymphadenopathy and no JVD Thyroid: thyroid normal Lymphatic: no lymphadenopathy noted Resp: Effort & Inspection: normal respiratory effort and able to speak in complete sentences Auscultation: clear to auscultation bilaterally Cardio: Jugular venous distension: no JVD Rate: regular rate Rhythm: regular rhythm Heart sounds: S1 normal heart sound present and S2 normal heart sound present GI: GI Palp: Yes Soft to palpation and Yes No hepatosplenomegaly present : General: Yes deferred Skin: Rashes: no rashes Wounds: no wounds Neuro: General: patient oriented x3 and CN's II-XI intact bilaterally Cranial nerves: Yes CN's II-XII intact bilaterally and Yes Equal, round and reactive pupils present Cognition (Neuro): normal cognition Speech: normal speech Gait exam (Neuro): Unable to assess gait Motor exam (neuro): Other motor observations present ( RT lower extremity muscle strength 4/5 felt to be due to chronic hip pain) Extrem: General: normal to inspection, full ROM, no joint enlargement and no pedal edema Objective Data Vital Signs Vital Signs: Vital Signs - 24 hr 06/09/23 18:17 06/09/23 18:26 06/09/23 18:31 Temperature 36.8 C Pulse Rate 72 71 71 Respiratory Rate 16 14 22 H Blood Pressure 153/64 H 153/64 H 144/66 H Pulse Oximetry 96 95 96 Oxygen Delivery Room Air 06/09/23 18:46 06/09/23 19:28 06/09/23 19:29 Temperature Pulse Rate 78 72 76 Respi
[2023-06-10] MEDS: FUROSEMIDE 40 MG TABLET PO (10:10)
[2023-06-10] MEDS: ATORVASTATIN 40 MG TABLET PO (10:10)
[2023-06-10] MEDS: rOPINIRole HCL 1 MG TABLET PO (10:10)
[2023-06-10] MEDS: busPIRone HCL 10 MG TABLET PO ×2 (10:11→20:50)
[2023-06-10] MEDS: FENOFIBRATE 160 MG TABLET PO (10:11)
[2023-06-10] MEDS: levETIRAcetam 500 MG TABLET 1000 MG PO (10:12)
[2023-06-10] MEDS: LORATADINE 10 MG TABLET PO (10:12)
[2023-06-10] MEDS: DICLOFENAC SOD 25 MG TABLET.EC 50 MG PO ×2 (10:14→20:49)
[2023-06-10 10:46] LABS: Cholesterol 141 mg/dL (0-200); HDL Direct 41 mg/dL; Triglycerides 238 mg/dL (<150)
[2023-06-10] MEDS: diphenhydrAMINE HCl INJ 50 MG/ML VIAL IV PUSH (10:54)
[2023-06-10 10:56] LABS: LDL Cholesterol Direct 71 mg/dL
--- NOTE | 2023-06-10 12:08 | PCSTNOTE ---
Please refer to the Bedside Swallow Evaluation in the EMR. Please note, silent aspiration cannot be ruled out at bedside.
--- NOTE | 2023-06-10 14:29 | PC.NURSE ---
all documentation done by Lora Bullard has been reviewed by this RN
--- NOTE | 2023-06-10 14:34 | PC.NURSE ---
[facility] students and instructor providing care for this pt this a.m, care of pt assumed at this time
[2023-06-10] MEDS: ACIDOPHILUS/BULGARICUS CHEWABLE TABLET 1 TABLET PO (16:34)
[2023-06-10] MEDS: MELATONIN 3 MG TABLET PO (20:50)
[2023-06-10] MEDS: levETIRAcetam 250 MG TABLET 750 MG PO (20:50)
[2023-06-10] MEDS: LACOSAMIDE (*CRX) 100 MG TABLET PO (20:50)
[2023-06-11] VITALS: PULSE 62
[2023-06-11 04:00] VITALS: PULSE 65
[2023-06-11] MEDS: LEVOTHYROXINE SODIUM 100 MCG TABLET 200 MCG PO (05:50)
[2023-06-11 06:00] VITALS: BP 138/59; PULSE 61; RESP 14; TEMP 35.7; O2SAT 94
[2023-06-11 06:17] LABS: Basophils Percent Auto 0.5 % (0.2-1.2); Eosinophils Absolute Auto 0.4 K/mm3 (0-0.3); Eosinophils Percent Auto 5.4 % (0-4.4); Hematocrit 37.3 % (37.0-47.0); Hemoglobin 11.4 g/dL (12.0-15.0); Immature Granulocyte Absolute 0.01 K/mm3 (0.00-0.031); Immature Granulocyte Percent A 0.1 % (0-0.5); Lymphocytes Absolute Auto 4.32 K/mm3 (0.9-3.2); Mean Corpuscular HGB Conc 30.6 g/dl (32-36); Mean Corpuscular Hemoglobin 29.4 pg (26-34); Mean Corpuscular Volume 96.1 fl (80-100); Mean Platelet Volume 12.5 fl (7.4-10.4); Monocytes Absolute Auto 0.6 K/mm3 (0.1-0.6); Neutrophils Absolute Auto 2.6 K/mm3 (1.3-6.7); Platelet Count Result 275 k/mm3 (150-375); Red Blood Count 3.88 M/mm3 (4.2-5.4); Red Cell Distribution Width 13.2 % (11.5-14.5)
[2023-06-11 06:33] LABS: Alanine Aminotransferase 16 U/L (6-35); Albumin Level 3.7 g/dL (3.5-5.1); Alkaline Phosphatase 47 U/L (38-126); Anion Gap 3 mmol/L (4-12); Aspartate Amino Transferase 22 U/L (14-36); Bilirubin,Total 0.6 mg/dL (0.2-1.3); Blood Urea Nitrogen 31 mg/dL (7-17); Carbon Dioxide 32 mmol/L (22-30); Chloride 104 mmol/L (98-107); Estimated CRCL calculation 32 ml/min; Estimated Glomerular Filt Rate 40; Glucose 119 mg/dL (65-110); Magnesium 2.2 mg/dL (1.6-2.3); Potassium 3.9 mmol/L (3.4-5.0); Sodium 139 mmol/L (137-145)
[2023-06-11 08:00] VITALS: PULSE 62
[2023-06-11] MEDS: busPIRone HCL 10 MG TABLET PO (08:59)
[2023-06-11] MEDS: CITALOPRAM HYDROBROMIDE 10 MG TABLET PO (08:59)
[2023-06-11] MEDS: PANTOPRAZOLE 40 MG TABLET PO (08:59)
[2023-06-11] MEDS: ARIPiprazole 2 MG TABLET PO (08:59)
[2023-06-11] MEDS: DICLOFENAC SOD 25 MG TABLET.EC 50 MG PO (08:59)
[2023-06-11] MEDS: rOPINIRole HCL 0.5 MG TABLET PO (08:59)
[2023-06-11] MEDS: ATORVASTATIN 40 MG TABLET PO (08:59)
[2023-06-11] MEDS: LACOSAMIDE (*CRX) 200 MG TABLET PO (08:59)
[2023-06-11] MEDS: ACIDOPHILUS/BULGARICUS CHEWABLE TABLET 1 TABLET PO (08:59)
[2023-06-11] MEDS: FUROSEMIDE 40 MG TABLET PO (08:59)
[2023-06-11] MEDS: LORATADINE 10 MG TABLET PO (08:59)
[2023-06-11] MEDS: FENOFIBRATE 160 MG TABLET PO (09:00)
[2023-06-11] MEDS: levETIRAcetam 500 MG TABLET 1000 MG PO (09:00)
[2023-06-11] MEDS: PRAMIPEXOLE 0.25 MG TABLET PO (09:00)
[2023-06-11] MEDS: rOPINIRole HCL 1 MG TABLET PO (09:00)
[2023-06-11] MEDS: MECLIZINE HCL 25 MG TABLET PO (09:00)
[2023-06-11] MEDS: ENOXAPARIN 40 MG/0.4 ML SYRINGE SUB-Q (09:07)
--- NOTE | 2023-06-11 11:17 | PM.DS ---
DS: Admitting Diagnosis Discharge Date 06/11/2023 Admitting Diagnosis Acute UTI, right leg weakness, restless legs syndrome, degenerative joint disease DS: Discharge Diagnosis Discharge Diagnosis (1) Acute UTI: Code(s): N39.0 - Urinary tract infection, site not specified Status: Acute (2) Right leg weakness: Code(s): R29.898 - Other symptoms and signs involving the musculoskeletal system Status: Acute (3) Restless leg syndrome: Code(s): G25.81 - Restless legs syndrome Status: Acute (4) DJD (degenerative joint disease): Code(s): M19.90 - Unspecified osteoarthritis, unspecified site Status: Acute (5) Renal dysfunction: Code(s): N28.9 - Disorder of kidney and ureter, unspecified Status: Acute (6) Stroke-like symptom: Code(s): R29.90 - Unspecified symptoms and signs involving the nervous system Status: Acute DS: Summary Hospital Course Hospital Course: This is a 73-year-old female patient who was admitted to the hospital with initial concerns of stroke-like symptoms right lower extremity weakness as well as possibly some right upper extremity weakness and facial droop. Patient has a prior history a large stroke in 2021. She has a documented allergy to aspirin and neither she nor her family can recall the reason for such allergy. Daughter states that it might be GI upset as many of her reported allergies were simply symptoms of GI upset. Due to documented allergy be did not administer aspirin. ER physician was primarily concerned for stroke where as admitting hospitalist was primarily concern for acute UTI. Stroke workup was continued upon admission including MRI, lipid panel and echocardiogram with bubble study. On exam the following morning of admission patient had no residual symptoms except that she would occasionally choke on her own saliva. Speech therapy consulted and bedside swallow study completed. Speech therapy was familiar with this patient and in this has been a chronic problem from the past. Patient was able to take medications drink fluids eat soft and bites sides food without evidence aspiration. Speech therapy worked with swallowing techniques to re-emphasized prior teachings. MRI shows no acute stroke but does show evidence prior old stroke. Lipid panel and an LDL of 71 where as triglycerides were slightly elevated. Initial urinalysis showed nitrate positive with 4+ urine bacteria and appeared to be a clean specimen without significant squamous cells. Unfortunately this did not reflex to culture. Patient will receive treatment with Levaquin q.48h for 3 doses. Patient also appears CKD with a GFR in the 40s but no known history of such. Only prior labs we to compare or from 2021. Urinalysis did not have any protein in the urine or hematuria. Recommended nonemergent follow-up with Nephrology and/or primary care regarding this finding. Discussed patient presentation treatment and recommendations including speech therapy and physical therapy when she returns back to nursing facility. Patient's daughter it is an employee of the retirement where patient resides. She was very knowledgeable regarding patient's medical history. Discussed the possibility TIA in regards to presenting symptoms that resolved without imaging changes on MRI. Discussed that I would consider attempting enteric-coated aspirin 81 mg daily if GI upset was the only reason aspirin is listed as an allergy. Daughter states no known history of GI bleeding. Otherwise no changes to medications at this. LDL was extremely close to goal of 70 so would defer initiation of statin to primary care. Status at Discharge Cognitive/behavioral status at discharge: Awake alert oriented and pleasant Functional status at discharge: uses cane/walker Overall status at discharge: patient is progressing back to baseline Time Spent with Patient Time attestation: Total time spent providing and/or coordin
[2023-06-11 12:00] VITALS: PULSE 76
[2023-06-11] MEDS: levoFLOXacin 750 MG TABLET PO (12:35)
[2023-06-11 13:21] LABS: SARS-CoV-2 RNA PCR Negative (Negative)
--- NOTE | 2023-06-11 13:29 | PC.NURSE ---
Report called to Janina, reviewed plan of care and transfer orders, daughter here to transport
[2023-06-11 14:00] VITALS: BP 138/56; PULSE 63; RESP 16; TEMP 36.4; O2SAT 97
== END 2023-06-11 14:53 | DRG 58 ==
LOC: ANHED 23:25 → ANH3MEDSUR 23:28
PROVIDERS: Admitting Provider Internal Medicine; Emergency Provider Student in an Organized Health Care Education/Training Program; PCP Internal Medicine; Visit Provider Nurse Practitioner
DX: G83.11 Monoplegia of lower limb affecting right dominant side (principal); N39.0 Urinary tract infection, site not specified; I69.328 Other speech and language deficits following cerebral infarction; M19.90 Unspecified osteoarthritis, unspecified site; E78.5 Hyperlipidemia, unspecified; G25.81 Restless legs syndrome; R29.704 NIHSS score 4; Z20.822 Contact with and (suspected) exposure to COVID-19; Z72.0 Tobacco use; Z86.011 Personal history of benign neoplasm of the brain
CPT/HCPCS: 36415; 70496; 70498; 70553; 71045; 80053; 80061; 80307; 81001; 83735; 84484; 85025; 85610; 85730; 86850; 86900; 86901; 87635; 92610; 93005; 93306; 96365; 96375; 97161; 97165; 99285; A9270; A9577; J0696; J1200; J1650; Q9967

== ENCOUNTER 2023-06-18 11:56 | Observation (INO) | payer OTHER, SELFPAY ==
[2023-06-18] VITALS (27 sets, daily range): BP systolic 96–143; BP diastolic 60–96; PULSE 72–121; RESP 12–24; TEMP 35.9–36.5; O2SAT 95–100; BMI 27.6; BMI 27.7
--- NOTE | ~2023-06-18 | MR_ITS ---
EXAMINATION: MR brain/brain stem wo con DATE: 06/19/2023 11:12 INDICATION: Right hemiparesis. TECHNIQUE: Magnetic resonance imaging (MRI) of the brain and brainstem was performed without intraven ous contrast. COMPARISON: Brain MRI 06/10/2023, 02/22/15, head CT 06/19/2023 FINDINGS: There is no acute ischemic infarct or intracranial hemorrhage. There is chronic encephaloma lacia involving left temporal lobe. There is chronic encephalomalacia involving left side of the russ and left middle cerebellar peduncle. There are scattered areas of nonspecific increased T2-weighted signal intensity in the cerebral white matter, which is within normal limits for the patient's age. T here is a 2.1 x 2.3 x 1.6 cm left petrous ridge meningioma. There is an old infarct in the right thal amus. The ventricles are normal in size. There is mucosal thickening in the paranasal sinuses. There are likely changes of right ocular lens replacement surgery. There are bilateral mastoid effusions. T here are changes of left-sided craniotomy and mastoidectomy. IMPRESSION: 1. 2.3 cm left petrous ridge meningioma, stable from 02/22/15. 2. Chronic encephalomalacia involving left temporal lobe, russ, and left middle cerebellar peduncle. 3. Old lacunar infarct in the right thalamus. Reviewed, dictated and finalized at location A.
--- NOTE | ~2023-06-18 | XR_ITS ---
EXAMINATION: XR chest 1V portable DATE: 06/18/2023 13:06 INDICATION: Mental status changes TECHNIQUE: frontal view of the chest was obtained. COMPARISON: Chest radiograph dated 06/09/2023 FINDINGS: The lungs remain clear with no focal airspace opacities, pulmonary edema, pleural effusion or pneumot horax. The cardiomediastinal silhouette is normal. IMPRESSION: 1. No acute cardiopulmonary disease. Reviewed, dictated and finalized at location A.
--- NOTE | ~2023-06-18 | CT_ITS ---
EXAMINATION: CT brain wo con DATE: 06/18/2023 12:10 INDICATION: Right-sided hemiparesis with facial droop TECHNIQUE: Computed tomography (CT) of the head was performed without intravenous contrast. Sagittal and coronal reconstructions were performed. The mA was adjusted according to patient size. Iterative reconstruction technique was employed. The dose-length product was 605.33 mGy-cm. COMPARISON: head CT dated 06/09/2023 and brain MR dated 06/10/2023 FINDINGS: Unchanged small old lacunar infarct at the right thalamus and posterior left lentiform nucleus. No ac tanacross intracranial hemorrhage, acute infarction or abnormal extra axial fluid collection. Again seen is chronic encephalomalacia in the left temporal lobe with overlying left temporal craniectomy. There i s additional asymmetric atrophy versus encephalomalacia involving the left cerebral peduncle the left side of the russ and left middle cerebellar peduncle which could result from the same etiology as th e left temporal lobe encephalomalacia or secondary Wallerian degeneration. Subjectively no interval c hange in approximately 2.5 x 2.2 cm likely meningioma which extends across the cephalad margin of the left petrous ridge near the apex which is better appreciated on the prior contrast enhanced studies. No other abnormal masses identified. Ventricles are normal and symmetric. Unchanged small right mast oid effusion. Stable appearance of change of left mastoidectomy with material within the post mastect ricardo space, tympanic cavity and external auditory canal. Changes of right intraocular lens replacement . Paranasal sinuses are unremarkable. IMPRESSION: 1. No acute intracranial process. 2. 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 3. Small old lacunar infarcts at the right thalamus and posterior left lentiform nucleus. 4. Chronic encephalomalacia in the left temporal lobe consistent with chronic insult which could be v ascular, traumatic or surgical with overlying craniectomy. Reviewed, dictated and finalized at location A. IMPRESSION: 1. No acute intracranial process. 2. 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 3. Small old lacunar infarcts at the right thalamus and posterior left lentifor m nucleus. 4. Chronic encephalomalacia in the left temporal lobe consistent with chronic i nsult which could be vascular, traumatic or surgical with overlying craniectomy .
--- NOTE | ~2023-06-18 | CT_ITS ---
EXAMINATION: CTA brain carotid DATE: 06/19/2023 09:16 INDICATION: Stroke. Unresponsive episode. TECHNIQUE: Computed tomographic angiography (CTA) of the head was performed with 100 mL Omnipaque-350 intravenous contrast. CTA of the neck was performed with intravenous contrast. Automated exposure co ntrol and iterative reconstruction technique were employed. The dose-length product was 822.57 mGy-cm . Maximum intensity projection and volume rendered 3D-reconstructions were created by the [employer] t on a separate workstation. COMPARISON: Head CT 06/18/2023, CTA 06/09/2023 FINDINGS: HEAD CTA: There is chronic encephalomalacia in left temporal lobe. There are changes of left-sided cr aniotomy. There is a 2.5 x 2.2 x 1.6 cm enhancing extra-axial mass anterolateral to the russ on the l eft, consistent with a meningioma. There are scattered areas of low attenuation in the cerebral white matter, which is within normal limits for the patient's age. There is an old lacunar infarct in the right thalamus. There is an old lacunar infarct in the left basal ganglia. There is no acute ischemic infarct or intracranial hemorrhage. The ventricles are normal in size. There is a right mastoid effu melina. There are changes of left mastoidectomy. There is material in the post-mastoidectomy space, tym panic cavity, and external artery canal. There is mucosal thickening in the paranasal sinuses. There are likely changes of right ocular lens replacement surgery. The vertebral arteries are codominant. T here is no significant stenosis of basilar artery or the posterior cerebral arteries. There is no sig nificant stenosis of intracranial internal carotid arteries or anterior or middle cerebral arteries. Anterior communicating artery is normal. The posterior communicating arteries are normal. There is no aneurysm. NECK CTA: There is mild emphysema. There is mild scarring at the lung apices. There are no pathologic ally enlarged lymph nodes. There is no significant stenosis of the vertebral arteries. There is total occlusion of proximal left subclavian artery. There is plaque in the proximal internal carotid arter ies. There is 31% stenosis of the proximal right internal carotid artery relative to normal distal ar davis lumen diameter (NASCET criteria). There is 38% stenosis of the proximal left internal carotid ar davis relative to normal distal artery lumen diameter. There is moderate cervical spondylosis. IMPRESSION: 1. 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 2. Chronic encephalomalacia in left temporal lobe. 3. Old lacunar infarcts in right thalamus and the left basal ganglia. 4. No aneurysm or significant intracranial arterial stenosis. 5. 31% stenosis of the proximal right internal carotid artery relative to normal distal artery lumen diameter (NASCET criteria). 6. 38% stenosis of the proximal left internal carotid artery relative to normal distal artery lumen d iameter. 7. 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 8. Mild emphysema. Reviewed, dictated and finalized at location A. IMPRESSION: 1. 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 2. Chronic encephalomalacia in left temporal lobe. 3. Old lacunar infarcts in right thalamus and the left basal ganglia. 4. No aneurysm or significant intracranial arterial stenosis. 5. 31% stenosis of the proximal right internal carotid artery relative to solo l distal artery lumen diameter (NASCET criteria). 6. 38% stenosis of the proximal left internal carotid artery relative to normal distal artery lumen diameter. 7. 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
--- NOTE | 2023-06-18 12:01 | ECG_ITS ---
SEE SCANNED COPY FOR CONFIRMED REPORT MTDD
--- NOTE | 2023-06-18 12:05 | ED.AMS ---
HPI - Altered Mental Status General Chief Complaint: Altered Mental Status Stated Complaint: AMS Time Seen by Provider: 06/18/23 12:01 Source: EMS Mode of arrival: EMS History of Present Illness HPI narrative: Patient last time was seen within normal condition at 9:30 this morning, came to the emergency room at 12 noon. EMT is telling me that patient was unresponsive to painful stimulation, hypoxic, saturation was in the 88%, gradually started coming back to normal after oxygen placement, history of right hemiplegia, it seem probably little bit more weaker on the right side compared to last time when he saw her 1 week ago. History of CVA. DNR. Patient was admitted to our facility on June 09, 2026 with initial concern of stroke-like symptoms right lower extremity weakness as well as possibly some right upper extremity weakness and facial drooping. Patient has a prior history of largest stroke in 2021. Workup including MRI of the brain showed no acute stroke at that time. Related Data Home Medications Medication Instructions Recorded Confirmed albuterol sulfate 90 mcg/actuation 2 puff inhalation Q4H PRN Dyspnea 12/16/21 06/10/23 aerosol inhaler atorvastatin 40 mg tablet 40 mg PO QAM 12/16/21 06/10/23 cetirizine 10 mg tablet (Zyrtec) 10 mg PO QAM 12/16/21 06/10/23 citalopram 10 mg tablet 10 mg PO QAM 12/16/21 06/10/23 diphenhydramine HCl 25 mg tablet 25 mg PO Q6H PRN itching 12/16/21 06/10/23 (Allergy (diphenhydramine)) fenofibrate 160 mg tablet 160 mg PO DAILY 12/16/21 06/10/23 lacosamide 100 mg tablet 100 mg PO HS 12/16/21 06/10/23 lacosamide 200 mg tablet 200 mg PO QAM 12/16/21 06/10/23 levothyroxine 200 mcg tablet 200 mcg PO QAM 12/16/21 06/10/23 loperamide 2 mg capsule 2 mg PO Q6H PRN Diarrhea 12/16/21 06/10/23 pramipexole 0.25 mg tablet 0.25 mg PO DAILY 12/16/21 06/10/23 ropinirole 0.5 mg tablet 0.5 mg PO BID 12/16/21 06/10/23 tizanidine 2 mg tablet 2 mg PO BID PRN Muscle Spasm 12/16/21 06/10/23 tramadol 50 mg tablet 50 mg PO Q8H PRN Pain 12/16/21 06/10/23 levetiracetam 500 mg tablet 1,000 mg PO QAM 03/26/22 06/10/23 Acidophilus 1 tab-cap PO DAILY 06/10/23 06/10/23 Adults Multivitamin 1 tab-cap PO DAILY 06/10/23 06/10/23 aripiprazole 2 mg tablet 2 mg PO DAILY 06/10/23 06/10/23 benzonatate 100 mg capsule 100 mg PO TID PRN Cough 06/10/23 06/10/23 buspirone 10 mg tablet 10 mg PO BID 06/10/23 06/10/23 diclofenac sodium 50 mg 50 mg PO BID 06/10/23 06/10/23 tablet,delayed release furosemide 40 mg tablet 40 mg PO DAILY 06/10/23 06/10/23 levetiracetam 750 mg tablet 750 mg PO HS 06/10/23 06/10/23 meclizine 25 mg tablet 25 mg PO DAILY 06/10/23 06/10/23 melatonin 3 mg tablet 3 mg PO HS 06/10/23 06/10/23 ondansetron 4 mg disintegrating 4 mg PO Q8H PRN Nausea And Vomiting 06/10/23 06/10/23 tablet pantoprazole 40 mg tablet,delayed 40 mg PO BID 06/10/23 06/10/23 release ropinirole 1 mg tablet 1 mg PO DAILY 06/10/23 06/10/23 Allergies Allergy/AdvReac Type Severity Reaction Status Date / Time aspirin Allergy Unknown Verified 06/09/23 19:08 Sulfa (Sulfonamide Allergy Unknown Verified 06/09/23 19:08 Antibiotics) Tetracyclines Allergy Unknown Verified 06/09/23 19:08 Iodinated Contrast Media AdvReac Mild Rash Verified 06/09/23 19:08 Penicillins AdvReac Unknown Abdominal Verified 06/09/23 19:08 Pain morphine AdvReac Rash Verified 06/09/23 19:08 phenytoin [From Dilantin] AdvReac Rash Verified 06/09/23 19:08 [facility] Past Medical History Medical History (Updated 06/18/23 @ 15:41 by Rachele Soni PA-C) Carotid artery disease Neck CTA from 06/04/2023 showed 31% stenosis of the proximal right ICA and 38% stenosis of proximal left ICA. Cerebrovascular accident Chronic kidney disease Chronic obstructive pulmonary disease Degenerative joint disease Depression Dyslipidemia Encephalomalacia Epilepsy Gastroesophageal reflux disease Hypothyroidism Meningioma Obstructive sleep apnea Intolerant to CPAP. Peptic ulcer Pe
[2023-06-18 12:32] LABS: Base Excess ABG -0.3 mEq/l (+/-2.0); Fractional Inspired Oxygen 21 %; HCO3 ABG 24.9 mEq/l (22.0-26.0); Oxygen Saturation ABG 94.9 % (95.0-100.0); Oxyhemoglobin 92.5 % THb (90.0-100.0); PCO2 ABG 42.8 mmHg (35.0-45.0); PO2 ABG 75.5 mmHg (80.0-100.0); pH ABG 7.382 (7.350-7.450)
[2023-06-18 12:33] LABS: Device ROOM AIR; Modified Allen's Test Pass; Site Drawn LEFT RADIAL
[2023-06-18 12:55] LABS: Basophils Percent Auto 0.3 % (0.2-1.2); Eosinophils Absolute Auto 0.1 K/mm3 (0-0.3); Eosinophils Percent Auto 1.1 % (0-4.4); Hematocrit 41.5 % (37.0-47.0); Hemoglobin 13.1 g/dL (12.0-15.0); Immature Granulocyte Absolute 0.01 K/mm3 (0.00-0.031); Immature Granulocyte Percent A 0.1 % (0-0.5); Lymphocytes Absolute Auto 1.17 K/mm3 (0.9-3.2); Lymphocytes Percent Auto 16.4 % (18.3-44.2); Mean Corpuscular HGB Conc 31.6 g/dl (32-36); Mean Corpuscular Hemoglobin 30.1 pg (26-34); Mean Corpuscular Volume 95.4 fl (80-100); Mean Platelet Volume 12.6 fl (7.4-10.4); Monocytes Absolute Auto 0.3 K/mm3 (0.1-0.6); Monocytes Percent Auto 4.8 % (2.6-8.5); Neutrophils Absolute Auto 5.5 K/mm3 (1.3-6.7); Neutrophils Percent Auto 77.3 % (45.5-73.1); Platelet Count Result 214 k/mm3 (150-375); Red Blood Count 4.35 M/mm3 (4.2-5.4); Red Cell Distribution Width 13.3 % (11.5-14.5); White Blood Count 7.1 K/mm3 (4.5-10.0)
[2023-06-18 12:57] LABS: Appearance Urine Clear (Clear); Bilirubin Urine Negative (Negative); Blood Urine Negative (Negative); Color Urine Yellow (Yellow); Glucose Urine UA Trace mg/dL (Negative); Ketones Urine Trace mg/dL (Negative); Leukocyte Esterase Ur Negative LEU/UL (Negative); Nitrate Urine Negative (Negative); Protein Urine Negative (Negative); Specific Grav Ur 1.021 (1.001-1.035); Urobilinogen Urine 0.2 mg/dL (<2.0)
[2023-06-18 13:01] LABS: Add Urine Microscopic? YES
[2023-06-18] MEDS: SODIUM CHLORIDE 0.9% IV 1,000 ML 100 ML IV CONT (13:05)
[2023-06-18 13:07] LABS: Partial Thromboplastin Time 29.7 Seconds (22.3-36.8)
[2023-06-18 13:18] LABS: Lactic Acid Reflex 2.2 mmol/L (0.7-2.0)
[2023-06-18 13:20] LABS: Alanine Aminotransferase 16 U/L (6-35); Albumin Level 4.4 g/dL (3.5-5.1); Alkaline Phosphatase 57 U/L (38-126); Anion Gap 9 mmol/L (4-12); Aspartate Amino Transferase 24 U/L (14-36); Bilirubin,Total 0.5 mg/dL (0.2-1.3); Blood Urea Nitrogen 36 mg/dL (7-17); CRP < 0.5 mg/dL (<1.0); Calcium 9.6 mg/dL (8.4-10.2); Carbon Dioxide 26 mmol/L (22-30); Chloride 109 mmol/L (98-107); Estimated CRCL calculation 40 ml/min; Estimated Glomerular Filt Rate 49; Glucose 169 mg/dL (65-110); Potassium 4.1 mmol/L (3.4-5.0); Sodium 144 mmol/L (137-145)
[2023-06-18 13:29] LABS: NT Pro B Type Natriuretic Pept 106 pg/mL (19.9-100); Troponin I < 0.012 ng/mL (0.000-0.034)
--- NOTE | 2023-06-18 14:59 | PM.IMHP ---
H&P: HPI History of Present Illness Date/Time: 06/18/23 16:00 Chief Complaint: Decreased responsiveness. Narrative: This is a 73-year-old female smoker with history of cerebrovascular accident with right-sided weakness, meningioma status post resection greater than 30 years ago, epilepsy, carotid artery disease, peripheral vascular disease, diastolic dysfunction, chronic kidney disease, chronic obstructive pulmonary disease, untreated obstructive sleep apnea, gastroesophageal reflux disease, peptic ulcer, hypothyroidism, and depression who presented to the emergency department via EMS from [facility] for evaluation of decreased responsiveness. She is alert and oriented x4 at the time my evaluation and provides the following history. Her daughter provides additional information, with the patient's permission. The patient is known to the hospitalist service from an admission just last at which time she presented with reported acute onset right leg weakness and numbness (later was learned that she did have mild right-sided weakness from prior stroke) Her symptoms resolved and brain MRI was without acute findings. Speech therapy recommended level 6 diet with regular liquids and she has been getting speech therapy at her nursing facility and according to the daughter she was okayed to eat a regular diet again a couple of days ago. This morning she was reportedly in her usual state of health and went outside to smoke a cigarette about 09:30. Thereafter she went back to her room to lie down for a bit and that is the last thing she remembers. Just before noon staff came to check on her and report that she was asleep but difficult to arouse, even with noxious stimuli. She was reportedly hypoxic with an SpO2 of 88% on room air. There were no reports of incontinence or tongue bite. EMS placed her on oxygen and she was more responsive thereafter and she was alert and oriented on arrival. The patient herself has no complaints when I came in the room to evaluate her. She was noted on exam to hold her head bent to the left side which she reports ?I guess my neck is tired.? She denies recent falls. She denies neck and upper extremity pain. It is difficult for her to say whether not she is having numbness or tingling on the right side. Daughter says the patient has garbled today. She denies headache, vertigo, acute visual changes, facial droop, difficulty swallowing, subjective decrease in right-sided deficit, and paresthesias. She also denies chest and pleuritic pain, racing heart, shortness of breath, nausea, vomiting, diarrhea, dysuria, and neck pain. In the ED: Vital signs were stable on arrival and she is currently on room air. Lactic acid was a bit elevated at 2.2 but the remainder of her labs are stable compared to those obtained last week. UA was positive for trace glucose and ketones. Head CT showed no acute process. Chest x-ray showed no acute cardiopulmonary disease. She is being admitted in this setting for further evaluation and close monitoring. Review of Systems Review of Systems: 12 systems were reviewed and are negative except for as per HPI. [facility] Past Medical History Medical History Carotid artery disease Neck CTA from 06/04/2023 showed 31% stenosis of the proximal right ICA and 38% stenosis of proximal left ICA. Cerebrovascular accident Chronic kidney disease Chronic obstructive pulmonary disease Degenerative joint disease Depression Dyslipidemia Encephalomalacia Epilepsy Gastroesophageal reflux disease Hypothyroidism Meningioma Obstructive sleep apnea Intolerant to CPAP. 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 Restless leg syndrome Tobacco abuse Surgical History Surgical History (Reviewed 06/18/23 @ 21:18 by Rachele Soni,
[2023-06-18 15:53] LABS: Reflex Lactic Acid Yes or No Add Lactic
[2023-06-18 18:40] LABS: Hemoglobin A1C 6.7 % (<5.7)
[2023-06-18 18:43] LABS: Lactic Acid 2.4 mmol/L (0.7-2.0)
[2023-06-18] MEDS: PANTOPRAZOLE 40 MG TABLET PO (19:08)
[2023-06-18] MEDS: busPIRone HCL 10 MG TABLET PO (19:08)
[2023-06-18] MEDS: DICLOFENAC SOD 25 MG TABLET.EC 50 MG PO (19:09)
[2023-06-18] MEDS: predniSONE 40 MG, predniSONE 10 MG 50 MG PO ×2 (19:09→23:53)
[2023-06-18] MEDS: rOPINIRole HCL 0.5 MG TABLET PO (19:10)
[2023-06-18] MEDS: MELATONIN 3 MG TABLET PO (21:36)
[2023-06-18] MEDS: levETIRAcetam 250 MG TABLET 750 MG PO (21:36)
[2023-06-18] MEDS: LACOSAMIDE (*CRX) 100 MG TABLET PO (21:36)
[2023-06-19] VITALS (9 sets, daily range): BP systolic 137–153; BP diastolic 58–77; PULSE 73–107; RESP 16–22; TEMP 36.2–36.8; O2SAT 92–100
[2023-06-19 05:29] LABS: Basophils Percent Auto 0.2 % (0.2-1.2); Hematocrit 39.8 % (37.0-47.0); Hemoglobin 12.3 g/dL (12.0-15.0); Immature Granulocyte Absolute 0.04 K/mm3 (0.00-0.031); Immature Granulocyte Percent A 0.6 % (0-0.5); Lymphocytes Absolute Auto 1.09 K/mm3 (0.9-3.2); Lymphocytes Percent Auto 16.6 % (18.3-44.2); Mean Corpuscular HGB Conc 30.9 g/dl (32-36); Mean Corpuscular Hemoglobin 29.9 pg (26-34); Mean Corpuscular Volume 96.8 fl (80-100); Mean Platelet Volume 12.4 fl (7.4-10.4); Monocytes Percent Auto 0.6 % (2.6-8.5); Neutrophils Absolute Auto 5.4 K/mm3 (1.3-6.7); Platelet Count Result 257 k/mm3 (150-375); Red Blood Count 4.11 M/mm3 (4.2-5.4); Red Cell Distribution Width 13.4 % (11.5-14.5); White Blood Count 6.6 K/mm3 (4.5-10.0)
[2023-06-19 05:40] LABS: Anion Gap 9 mmol/L (4-12); Blood Urea Nitrogen 28 mg/dL (7-17); Calcium 9.5 mg/dL (8.4-10.2); Carbon Dioxide 25 mmol/L (22-30); Chloride 114 mmol/L (98-107); Estimated CRCL calculation 40 ml/min; Estimated Glomerular Filt Rate 49; Glucose 243 mg/dL (65-110); Magnesium 2.3 mg/dL (1.6-2.3); Potassium 3.9 mmol/L (3.4-5.0); Sodium 148 mmol/L (137-145)
[2023-06-19 06:10] LABS: Thyroid Stimulating Hormone Reflex 0.621 uIU/mL (0.465-4.68)
[2023-06-19] MEDS: LEVOTHYROXINE SODIUM 100 MCG TABLET 200 MCG PO (06:51)
[2023-06-19] MEDS: predniSONE 40 MG, predniSONE 10 MG 50 MG PO (06:52)
[2023-06-19] MEDS: LACOSAMIDE (*CRX) 200 MG TABLET PO (06:52)
[2023-06-19] MEDS: diphenhydrAMINE HCl INJ 50 MG/ML VIAL IV PUSH (06:52)
--- NOTE | 2023-06-19 08:35 | PC.NURSE ---
Pt was picked up for procedure and off the unit
--- NOTE | 2023-06-19 10:47 | WPDNEURCNPN ---
Assessment and Plan Assessment and plan (1) Unresponsive episode: Code(s): R40.4 - Transient alteration of awareness Status: Acute (2) Right sided weakness: Code(s): R53.1 - Weakness Status: Acute (3) Epilepsy: Code(s): G40.909 - Epilepsy, unspecified, not intractable, without status epilepticus Status: Acute (4) Cerebrovascular accident: Code(s): I63.9 - Cerebral infarction, unspecified Status: Acute Plan Ms. Whitaker is a 73 year old female with a history of prior stroke and seizures presenting after an episode of loss of consciousness followed by some confusion, also with hypoxia. Concern for possible seizure. MRI brain has been obtained to rule out acute stroke, but it seems that she does not have any new focal symptoms. She has evidence of chronic encephalomalacia in the L temporal lobe, which explains the residual R sided deficits. - Increase Keppra to 1000mg BID - Continue Lacosamide 100mg in AM and 200mg qhs - No driving until seizure free for at least 6 months - MRI brain is pending - Refer to vascular surgery as outpatient for L subclavian artery occlusion -- this can cause syncope which is also a possibility Consult date: 06/19/23 Reason for consult: Seizure like activity. HPI: Summer Whitaker is a 73 year old female with a history of prior stroke with residual R sided weakness, meningioma s/p resection, carotid artery disease, PAD, CKD, COPD, CATARINO, hypothyroidism, and epilepsy presenting from [facility] for episode of decreased unresponsiveness. Of note, patient was discharged a little over a week ago from [facility] -- she presented due to worsening R sided weakness and numbness. UA was concerning for UTI which she was treated for. Her MRI brain from that admission did not show any acute changes, so she was ultimately discharged. On day of this admission, patient was outside going to smoke a cigarette. She went back to her room to lie down and that is the last thing she remembers. A few hours later, staff when to check on her and noted that she was asleep but difficult to arouse, even with noxious stimuli, and she was hypoxic at 88%. EMS was called, she was placed on O2 and she was taken to [place] ED. On arrival she was much more alert. In the ER CT head showed no acute changes. UA was not suggestive of UTI. Patient is on Keppra 750/1000mg and Lacosamide 100/200mg CTA brain/carotid was also obtained again from this admission: 1. 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 2. Chronic encephalomalacia in left temporal lobe. 3. Old lacunar infarcts in right thalamus and the left basal ganglia. 4. No aneurysm or significant intracranial arterial stenosis. 5. 31% stenosis of the proximal right internal carotid artery relative to normal distal artery lumen diameter (NASCET criteria). 6. 38% stenosis of the proximal left internal carotid artery relative to normal distal artery lumen diameter. 7. 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 8. Mild emphysema. Review of Systems Review of Systems: ROS unobtainable: Yes unobtainable due to mental status PMFSH Past Medical History Medical History Carotid artery disease Neck CTA from 06/04/2023 showed 31% stenosis of the proximal right ICA and 38% stenosis of proximal left ICA. Cerebrovascular accident Chronic kidney disease Chronic obstructive pulmonary disease Degenerative joint disease Depression Dyslipidemia Encephalomalacia Epilepsy Gastroesophageal reflux disease Hypothyroidism Meningioma Obstructive sleep apnea Intolerant to CPAP. 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 Restless leg syndrome Tobacco abuse Surgical Histo
[2023-06-19] MEDS: DICLOFENAC SOD 25 MG TABLET.EC 50 MG PO ×2 (10:54→17:47)
[2023-06-19] MEDS: ARIPiprazole 2 MG TABLET PO (10:54)
[2023-06-19] MEDS: levETIRAcetam 500 MG TABLET 1000 MG PO (10:54)
[2023-06-19] MEDS: rOPINIRole HCL 1 MG TABLET PO (10:55)
[2023-06-19] MEDS: FENOFIBRATE 160 MG TABLET PO (10:55)
[2023-06-19] MEDS: ATORVASTATIN 40 MG TABLET PO (10:55)
[2023-06-19] MEDS: CITALOPRAM HYDROBROMIDE 10 MG TABLET PO (10:55)
[2023-06-19] MEDS: busPIRone HCL 10 MG TABLET PO ×2 (10:55→17:47)
[2023-06-19] MEDS: FUROSEMIDE 40 MG TABLET PO (10:55)
[2023-06-19] MEDS: LORATADINE 10 MG TABLET PO (10:55)
[2023-06-19] MEDS: PRAMIPEXOLE 0.25 MG TABLET PO (10:55)
[2023-06-19] MEDS: rOPINIRole HCL 0.5 MG TABLET PO ×2 (10:55→17:47)
[2023-06-19] MEDS: MULTIVITAMINS THERAPEUTIC TAB (*BKC) 1 TABLET PO (10:56)
[2023-06-19] MEDS: ACIDOPHILUS/BULGARICUS CHEWABLE TABLET 1 TABLET PO (10:56)
[2023-06-19] MEDS: PANTOPRAZOLE 40 MG TABLET PO ×2 (10:56→17:47)
--- NOTE | 2023-06-19 13:55 | PM.IMPN ---
Progress Note: A&P Assessment and Plan (1) Unresponsive episode: Code(s): R40.4 - Transient alteration of awareness Status: Acute Assessment and Plan: Seizure versus syncope due to subclavian steal. No abnormal rhythm noted. No excessive hyperglycemia or hypoglycemia noted. (2) Acute metabolic encephalopathy: Code(s): G93.41 - Metabolic encephalopathy Status: Acute Assessment and Plan: postictal state versus other unclear cause of delirium mild elevation of lactic acid at admission suggest recent seizure some of current confusion could related to premedication given for CT dye continue to montor with incresased activity (3) Right sided weakness: Code(s): R53.1 - Weakness Status: Acute Assessment and Plan: Chronic and stable per history (4) Peripheral vascular disease: Code(s): I73.9 - Peripheral vascular disease, unspecified Status: Acute Assessment and Plan: subclavian steal by CTA (5) Epilepsy: Code(s): G40.909 - Epilepsy, unspecified, not intractable, without status epilepticus Status: Acute Assessment and Plan: last observed seizure about 8 months ago and generalized tonic clonic resides in facility where she regularly receives her medications antiseizure medication levels pending (6) Type 2 diabetes mellitus without complications: Code(s): E11.9 - Type 2 diabetes mellitus without complications Status: Acute Assessment and Plan: prior history of type 2 diabetes with current A1c 6.7 due to high cardiovascular risk add empafliglozin (7) Chronic kidney disease: Code(s): N18.9 - Chronic kidney disease, unspecified Status: Acute Assessment and Plan: creatinine 1.1 at baseline (8) Dyslipidemia: Code(s): E78.5 - Hyperlipidemia, unspecified Status: Acute Assessment and Plan: continue atorvastatin Subjective Date/time seen: 06/19/23 13:55 Interval history: Chart reviewed. History reviewed At bedside. Confusion is still not at baseline. Confabulates intermittently. Only pain is chronic pain in her left hip. No shortness of breath. No GI or complaints. Ate well at breakfast and lunch. Chronic right-sided weakness at baseline. Review of Systems Review of Systems: All systems reviewed & are unremarkable except as noted in HPI and below Exam Narrative: HEENT: EOMI, PERRL, sclerae nonicteric, pharyngeal mucosa pink and intact NECK: No JVD, adenopathy, or thyromegaly CHEST: Clear to auscultation. Normal effort. HEART: NL S1/S2, regular, no murmur ABDOMEN: BS+, soft, nontender, no mass, no bruits EXTREMITIES: No cyanosis, edema, or clubbing NEUROLOGIC: CN intact and symmetric to inspection. DTR's increased RUE, RLE vs left. 2-3 beat CLONUS right ankle. 4/5 strength RUE, RLE and intact on left. MUSCULOSKELETAL: No gross deformity to visual inspection. PSYCH: Alert. Oriented to person, place, and month but not to year or day. Did not know the name of the facility where she resides. Objective Data Vital Signs Vital Signs: Vital Signs - 24 hr 06/18/23 14:00 06/18/23 14:02 06/18/23 14:15 Temperature Pulse Rate 105 H 103 H 95 Respiratory Rate 12 22 H 15 Blood Pressure 99/72 L Pulse Oximetry Oxygen Delivery 06/18/23 14:16 06/18/23 14:30 06/18/23 14:31 Temperature Pulse Rate 95 121 H 113 H Respiratory Rate 14 17 16 Blood Pressure 104/67 100/76 Pulse Oximetry Oxygen Delivery 06/18/23 14:45 06/18/23 15:00 06/18/23 15:07 Temperature Pulse Rate 100 95 100 Respiratory Rate 18 16 15 Blood Pressure 96/60 L Pulse Oximetry Oxygen Delivery 06/18/23 15:15 06/18/23 15:16 06/18/23 16:00 Temperature 96.6 F L Pulse Rate 100 117 H 100 Respiratory Rate 17 24 H 20 Blood Pressure 122/96 H 108/64 Pulse Oximetry 95 100 Oxygen Delivery 06/18/23 16:00 06/18/23 20:00
[2023-06-19] MEDS: LACOSAMIDE (*CRX) 100 MG TABLET PO (21:13)
[2023-06-19] MEDS: levETIRAcetam 250 MG TABLET 750 MG PO (21:13)
[2023-06-19] MEDS: MELATONIN 3 MG TABLET PO (21:13)
[2023-06-20 04:00] VITALS: BP 144/59; PULSE 71; RESP 16; TEMP 36.2; O2SAT 94
[2023-06-20] MEDS: LACOSAMIDE (*CRX) 200 MG TABLET PO (06:14)
[2023-06-20] MEDS: LEVOTHYROXINE SODIUM 100 MCG TABLET 200 MCG PO (06:14)
[2023-06-20 06:18] LABS: Albumin Level 3.5 g/dL (3.5-5.1); Anion Gap 6 mmol/L (4-12); Blood Urea Nitrogen 33 mg/dL (7-17); Calcium 9.5 mg/dL (8.4-10.2); Carbon Dioxide 27 mmol/L (22-30); Chloride 111 mmol/L (98-107); Estimated CRCL calculation 40 ml/min; Estimated Glomerular Filt Rate 49; Glucose 139 mg/dL (65-110); Phosphorus 3.5 mg/dL (2.5-4.5); Potassium 3.6 mmol/L (3.4-5.0); Sodium 144 mmol/L (137-145)
[2023-06-20 08:00] VITALS: BP 121/63; BP 133/66; PULSE 69; PULSE 94; RESP 18; TEMP 36.7; O2SAT 94
[2023-06-20 08:45] VITALS: BP 140/65; BP 155/62; PULSE 93
[2023-06-20] MEDS: MULTIVITAMINS THERAPEUTIC TAB (*BKC) 1 TABLET PO (09:09)
[2023-06-20] MEDS: LORATADINE 10 MG TABLET PO (09:09)
[2023-06-20] MEDS: FUROSEMIDE 40 MG TABLET PO (09:09)
[2023-06-20] MEDS: PANTOPRAZOLE 40 MG TABLET PO ×2 (09:09→16:35)
[2023-06-20] MEDS: CITALOPRAM HYDROBROMIDE 10 MG TABLET PO (09:09)
[2023-06-20] MEDS: ATORVASTATIN 40 MG TABLET PO (09:09)
[2023-06-20] MEDS: rOPINIRole HCL 0.5 MG TABLET PO ×2 (09:09→16:35)
[2023-06-20] MEDS: levETIRAcetam 500 MG TABLET 1000 MG PO (09:09)
[2023-06-20] MEDS: EMPAGLIFLOZIN 10 MG TABLET PO (09:09)
[2023-06-20] MEDS: busPIRone HCL 10 MG TABLET PO ×2 (09:09→16:35)
[2023-06-20] MEDS: FENOFIBRATE 160 MG TABLET PO (09:09)
[2023-06-20] MEDS: ARIPiprazole 2 MG TABLET PO (09:09)
[2023-06-20] MEDS: PRAMIPEXOLE 0.25 MG TABLET PO (09:10)
[2023-06-20] MEDS: rOPINIRole HCL 1 MG TABLET PO (09:10)
[2023-06-20] MEDS: DICLOFENAC SOD 25 MG TABLET.EC 50 MG PO ×2 (09:10→16:35)
[2023-06-20] MEDS: ACIDOPHILUS/BULGARICUS CHEWABLE TABLET 1 TABLET PO (09:10)
[2023-06-20 10:27] LABS: Glucose Point of Care 116 mg/dl (65-105)
[2023-06-20 10:48] LABS: Levetiracetam Keppra 24.5 mcg/mL (6.0-46.0)
[2023-06-20 11:53] VITALS: BP 142/63; PULSE 67; RESP 20; TEMP 36.6; O2SAT 98
--- NOTE | 2023-06-20 15:19 | P.PNIM_ITS ---
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 2. Chronic encephalomalacia involving left temporal lobe, russ, and left middle cerebellar peduncle. 3. Old lacunar infarct in the right thalamus. (3) Right sided weakness: Code(s): R53.1 - Weakness Status: Acute Assessment and Plan: * acute on chronic * PT/ OT/ ST today * hopeful dc back to [place] tomorrow (4) Peripheral vascular disease: Code(s): I73.9 - Peripheral vascular disease, unspecified Status: Acute Assessment and Plan: * subclavian steal by CTA (5) Epilepsy: Code(s): G40.909 - Epilepsy, unspecified, not intractable, without status epilepticus Status: Acute Assessment and Plan: * last observed seizure about 8 months ago and generalized tonic clonic * resides in facility where she regularly receives her medications * seizure meds have been adjusted (6) Type 2 diabetes mellitus without complications: Code(s): E11.9 - Type 2 diabetes mellitus without complications Status: Acute Assessment and Plan: * prior history of type 2 diabetes with current A1c 6.7 * watch sugars in hospital (7) Chronic kidney disease: Code(s): N18.9 - Chronic kidney disease, unspecified Status: Acute Assessment and Plan: * creatinine 1.1 at baseline (8) Dyslipidemia: Code(s): E78.5 - Hyperlipidemia, unspecified Status: Acute Assessment and Plan: * continue atorvastatin Subjective Date/time seen: 06/20/23 15:19 Interval history: interval history : 73-year-old female smoker with history of cerebrovascular accident with right-sided weakness, meningioma status post resection greater than 30 years ago, epilepsy, carotid artery disease, peripheral vascular disease, diastolic dysfunction, chronic kidney disease, chronic obstructive pulmonary disease, untreated obstructive sleep apnea, gastroesophageal reflux disease, peptic ulcer, hypothyroidism, and depression who presented to the emergency department via EMS from [facility] for evaluation of decreased responsiveness. Pt looks like they had a new stroke , pt has weakness in right leg and appears slurred, pt has history of stroke and seizure but appears more weak today Continue PT/ OT/ ST here in hospital plan to dc back to [place] soon pt seen by neurology mri ordered seizure meds adjusted. Review of Systems Review of Systems: Much the same slow improvement Exam Narrative: GENERALLY: Older lady with slurred speech chronically ill appearing CHEST: Clear to auscultation. Normal effort. HEART: NL S1/S2, regular, no murmur ABDOMEN: BS+, soft, nontender, no mass, no bruits EXTREMITIES: No cyanosis, edema, or clubbing NEUROLOGIC: R arm 4/5 R leg 3/5 MUSCULOSKELETAL: No gross deformity to visual inspection. PSYCH: Alert. Oriented to person, place, and month but not to year or day. Objective
--- NOTE | 2023-06-20 15:19 | PM.IMPN ---
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 2. Chronic encephalomalacia involving left temporal lobe, russ, and left middle cerebellar peduncle. 3. Old lacunar infarct in the right thalamus. (3) Right sided weakness: Code(s): R53.1 - Weakness Status: Acute Assessment and Plan: acute on chronic PT/ OT/ ST today hopeful dc back to [place] tomorrow (4) Peripheral vascular disease: Code(s): I73.9 - Peripheral vascular disease, unspecified Status: Acute Assessment and Plan: subclavian steal by CTA (5) Epilepsy: Code(s): G40.909 - Epilepsy, unspecified, not intractable, without status epilepticus Status: Acute Assessment and Plan: last observed seizure about 8 months ago and generalized tonic clonic resides in facility where she regularly receives her medications seizure meds have been adjusted (6) Type 2 diabetes mellitus without complications: Code(s): E11.9 - Type 2 diabetes mellitus without complications Status: Acute Assessment and Plan: prior history of type 2 diabetes with current A1c 6.7 watch sugars in hospital (7) Chronic kidney disease: Code(s): N18.9 - Chronic kidney disease, unspecified Status: Acute Assessment and Plan: creatinine 1.1 at baseline (8) Dyslipidemia: Code(s): E78.5 - Hyperlipidemia, unspecified Status: Acute Assessment and Plan: continue atorvastatin Subjective Date/time seen: 06/20/23 15:19 Interval history: interval history : 73-year-old female smoker with history of cerebrovascular accident with right-sided weakness, meningioma status post resection greater than 30 years ago, epilepsy, carotid artery disease, peripheral vascular disease, diastolic dysfunction, chronic kidney disease, chronic obstructive pulmonary disease, untreated obstructive sleep apnea, gastroesophageal reflux disease, peptic ulcer, hypothyroidism, and depression who presented to the emergency department via EMS from [facility] for evaluation of decreased responsiveness. Pt looks like they had a new stroke , pt has weakness in right leg and appears slurred, pt has history of stroke and seizure but appears more weak today Continue PT/ OT/ ST here in hospital plan to dc back to [place] soon pt seen by neurology mri ordered seizure meds adjusted. Review of Systems Review of Systems: Much the same slow improvement Exam Narrative: GENERALLY: Older lady with slurred speech chronically ill appearing CHEST: Clear to auscultation. Normal effort. HEART: NL S1/S2, regular, no murmur ABDOMEN: BS+, soft, nontender, no mass, no bruits EXTREMITIES: No cyanosis, edema, or clubbing NEUROLOGIC: R arm 4/5 R leg 3/5 MUSCULOSKELETAL: No gross deformity to visual inspection. PSYCH: Alert. Oriented to person, place, and month but not to year or day. Objective Data Vital Signs Vital Signs: Vital Signs - 24 hr 06/19/23 20:00 06/19/23 20:00 06/19/23 20:00 Temperature 36.6 C 36.6 C 36.6 C Pulse Rate 89 86 97 Respiratory Rate 20 22 H 22 H Blood Pressure 153/58 H 139/59 L 152/66 H Pulse Oximetry 98 97 98 Oxygen Delivery 06/19/23 23:22 06/19/23 22:00 06/20/23 04:00 Temperature 36.2 C L 36.2 C L Pulse Rate 73 71 Respiratory Rate 16 16 Blood Pressure 147/65 H 144/59 H
[2023-06-20 16:00] VITALS: BP 115/51; PULSE 84; RESP 20; TEMP 36.9; O2SAT 92
[2023-06-20] MEDS: ACETAMINOPHEN 325 MG TABLET 650 MG PO (16:35)
[2023-06-20 20:00] VITALS: BP 120/60; PULSE 70; RESP 16; TEMP 36.3; O2SAT 93
[2023-06-20] MEDS: levETIRAcetam 250 MG TABLET 750 MG PO (20:45)
[2023-06-20] MEDS: LACOSAMIDE (*CRX) 100 MG TABLET PO (20:46)
[2023-06-20] MEDS: MELATONIN 3 MG TABLET PO (20:46)
[2023-06-21] VITALS (8 sets, daily range): BP systolic 97–143; BP diastolic 48–76; PULSE 65–95; RESP 16–20; TEMP 36.4–36.6; O2SAT 91–98
[2023-06-21] MEDS: LEVOTHYROXINE SODIUM 100 MCG TABLET 200 MCG PO (06:04)
[2023-06-21] MEDS: LACOSAMIDE (*CRX) 200 MG TABLET PO (06:04)
[2023-06-21] MEDS: MULTIVITAMINS THERAPEUTIC TAB (*BKC) 1 TABLET PO (09:14)
[2023-06-21] MEDS: FENOFIBRATE 160 MG TABLET PO (09:14)
[2023-06-21] MEDS: ARIPiprazole 2 MG TABLET PO (09:14)
[2023-06-21] MEDS: levETIRAcetam 500 MG TABLET 1000 MG PO (09:14)
[2023-06-21] MEDS: rOPINIRole HCL 1 MG TABLET PO (09:14)
[2023-06-21] MEDS: CITALOPRAM HYDROBROMIDE 10 MG TABLET PO (09:15)
[2023-06-21] MEDS: busPIRone HCL 10 MG TABLET PO ×2 (09:15→16:19)
[2023-06-21] MEDS: rOPINIRole HCL 0.5 MG TABLET PO ×2 (09:15→16:19)
[2023-06-21] MEDS: PRAMIPEXOLE 0.25 MG TABLET PO (09:15)
[2023-06-21] MEDS: PANTOPRAZOLE 40 MG TABLET PO ×2 (09:15→16:20)
[2023-06-21] MEDS: EMPAGLIFLOZIN 10 MG TABLET PO (09:15)
[2023-06-21] MEDS: ACIDOPHILUS/BULGARICUS CHEWABLE TABLET 1 TABLET PO (09:15)
[2023-06-21] MEDS: LORATADINE 10 MG TABLET PO (09:15)
[2023-06-21] MEDS: FUROSEMIDE 40 MG TABLET PO (09:15)
[2023-06-21] MEDS: ATORVASTATIN 40 MG TABLET PO (09:15)
[2023-06-21] MEDS: DICLOFENAC SOD 25 MG TABLET.EC 50 MG PO ×2 (09:15→16:20)
[2023-06-21] MEDS: ENOXAPARIN 40 MG/0.4 ML SYRINGE SUB-Q (09:16)
[2023-06-21] MEDS: ACETAMINOPHEN 325 MG TABLET 650 MG PO (09:18)
--- NOTE | 2023-06-21 11:58 | WPDNEUROPN ---
Subjective Date/time seen: 06/21/23 11:59 Interval history: 73 years old right-handed female initially evaluated by Dr. Love for the ongoing complaints of previous stroke followed by the seizures and episode of loss of consciousness along with the confusion raising the possibility of the seizure evaluation revealed him to have chronic encephalomalacia of the left temporal lobe patient has been on Keppra 1000mg twice a day along with lacosamide 100mg in the morning 200 at night and also instruction not to drive for the 6 months patient has also been suggested to be seen by the vascular surgeon for the left subclavian artery occlusion. MRI of the brain has documented 2.3cm left petrous ridge meningioma which has been stable since February of 2015 additional chronic encephalomalacia of the left temporal lobe russ and left middle cerebellarl peduncle In addition to old lacunar infarct in right thalamus. 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 Patient has been taking multiple medications which include airy pupils old 2mg daily, atorvastatin 40mg daily, BuSpar 10mg twice a day, citalopram 10mg daily, lacosamide 100mg at night, and 200mg in the morning, along with Co Keppra 1000mg in the morning and 750mg at night she is also taking pramipexole 0.25mg daily ropinirole 0.5mg twice a day and 1mg at night tizanidine 2mg b.i.d. patient does have possibility of intractable epilepsy but needs to cut down the medications according to the regular follow-up with 1 physician and can be referred to vascular surgeon for the subclavian steal as an outpatient. Objective Data Vital Signs Vital Signs: Vital Signs - 24 hr 06/20/23 16:00 06/20/23 20:00 06/20/23 20:00 Temperature 36.9 C 36.3 C L Pulse Rate 84 70 Respiratory Rate 20 16 Blood Pressure 115/51 L 120/60 Pulse Oximetry 92 93 Oxygen Delivery Room Air Fraction of Inspired Oxygen 06/21/23 00:00 06/21/23 04:00 06/21/23 08:26 Temperature 36.6 C 36.4 C L Pulse Rate 68 65 Respiratory Rate 16 16 Blood Pressure 125/48 L 143/54 H Pulse Oximetry 91 91 92 Oxygen Delivery Room Air Fraction of Inspired Oxygen 21 06/21/23 08:00 06/21/23 08:00 06/21/23 10:03 Temperature 36.5 C Pulse Rate 75 80 81 Respiratory Rate 20 Blood Pressure 115/59 L 97/67 L 115/59 L Pulse Oximetry 94 Oxygen Delivery Fraction of Inspired Oxygen 06/21/23 10:03 06/21/23 09:14 Temperature Pulse Rate 95 Respiratory Rate Blood Pressure 129/56 L Pulse Oximetry Oxygen Delivery Room Air Fraction of Inspired Oxygen Intake/Output Intake/Output: Intake & Output 06/18/23 06/19/23 06/20/23 06/21/23 23:59 23:59 23:59 23:59 Intake Total 4636 237 6913 640 Output Total 200 300 Balance 3141 220 3256 640 Meds/Results Medications: Active Medications Generic Name Dose Route Start Last Admin Trade Name Freq PRN Reason Stop Dose Admin Acetaminophen 650 mg 06/18/23 14:43 06/21/23 09:18 Acetaminophen 325 Mg Tablet PO 650 mg Q4H PRN Administration Mild Pain (1-3) or Fever Albuterol 2 puff 06/18/23 17:32 Albuterol Sulfate (*Sp) Aerosol 1 Puff INHALATION Q4H PRN Dyspnea Aripiprazole 2 mg 06/19/23 09:00 06/21/23 09:14 Aripiprazole 2 Mg Tablet PO 2 mg DAILY FELTON Administration Atorvastatin Calcium 40 mg 06/19/23 09:00 06/21/23 09:15 Atorvastatin 40 Mg Tablet PO 40 mg QAM FELTON Administration Buspirone HCl 10 mg 06/18/23 17:55 06/21/23 09:15 Buspirone Hcl 10 Mg Tablet PO 10 mg BID FELTON Administration Citalopram Hydrobromide 10 mg 06/19/23 09:00 06/21/23 09:15 Citalopram Hydrobromide 10 Mg Tablet PO 10 mg QAM FELTON Administration Diclofenac Sodium 50 mg 06/18/23 17:55 06/21/23 09:15 Diclofen
--- NOTE | 2023-06-21 16:46 | PM.DS ---
DS: Admitting Diagnosis Discharge Date 06/21/23 Admitting Diagnosis Decreased responsiveness DS: Discharge Diagnosis Discharge Diagnosis (1) Unresponsive episode: Code(s): R40.4 - Transient alteration of awareness Status: Acute (2) Acute metabolic encephalopathy: Code(s): G93.41 - Metabolic encephalopathy Status: Acute (3) Right sided weakness: Code(s): R53.1 - Weakness Status: Acute (4) Peripheral vascular disease: Code(s): I73.9 - Peripheral vascular disease, unspecified Status: Acute (5) Epilepsy: Code(s): G40.909 - Epilepsy, unspecified, not intractable, without status epilepticus Status: Acute (6) Type 2 diabetes mellitus without complications: Code(s): E11.9 - Type 2 diabetes mellitus without complications Status: Acute (7) Chronic kidney disease: Code(s): N18.9 - Chronic kidney disease, unspecified Status: Acute (8) Dyslipidemia: Code(s): E78.5 - Hyperlipidemia, unspecified Status: Acute DS: Summary Hospital Course Reason for hospitalization: 73yo female smoker with history of CVA with right-sided weakness, meningioma status post resection greater than 30 years ago, epilepsy, carotid artery disease, PAD, diastolic dysfunction, chronic kidney disease, COPD, untreated CATARINO, hypothyroidism, and depression who presented to the emergency department via EMS from [facility] for evaluation of decreased responsiveness.?Please see H&P for details. Hospital Course: Vital signs were stable on arrival and was on room air. Lactic acid was a bit elevated at 2.2 but the remainder of her labs were stable compared to those obtained last week. UA was positive for trace glucose and ketones. Head CT showed no acute process. Chest x-ray showed no acute cardiopulmonary disease. She was admitted for further evaluation. Neurology was consulted. EKG was read as normal. Recent Echo showing EF 60-65% with grade I diastolic dysfunction. Blood cultures were negative to date. CTA head/neck showing stable 2.5cm left meningioma, chronic encephalomalacia in the left temporal lobe, old lacunar infarcts in right thalamus and left basal ganglia, and mild (31% right and 38% left) proximal ICA stenosis. 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 Brain MRI showing similar findings but no acute process. Neurology recommended advancing the Keppra and for patient not to drive until seizure free for at least 6 months. Discussed with neurology who agreed with adding Plavix. Spoke with family and they were not aware of any contraindication so Plavix added. She overall did well and was able to be discharged on 06/21/23. Status at Discharge Cognitive/behavioral status at discharge: stable Time Spent with Patient Time attestation: Total time spent providing and/or coordinating discharge services: 37 minutes Time spent: Greater than 30 minutes Exam Narrative: AF 97.7 102/76 82 20 98% ra Gen - NARD Chest - lungs clear anteriorly, nml RR CV - RRR S1/S2 Abd - Soft, NT/ND, Positive BS Ext - No pedal edema Neuro - Alert and oriented x4 Psych - Nml mood and affect Skin - Warm and dry DS: Data Data Completed and Pending Labs on day of discharge: Preliminary micro results at discharge 06/18/23 12:32 Blood Culture - Preliminary Blood 06/18/23 12:32 Blood Culture - Preliminary Blood Discharge Plan Discharge Attending physician on discharge: Mandeep Brian Consulting providers: Lesly Love Discharging Clinician: Mandeep Brian Anticipated Discharge Date/Time: 06/21/23 17:08 Patient Disposition: NH Detention/Asst Living Activity: no driving Diet: other - see discharge instructions Discharge Instructions: Soft and bite sized Level 6 heart healthy diet. No driving until seizure free for at least 6 months Please check glucose before meals and before bed. Record for t
[2023-06-24 10:13] LABS: Lacosamide 8.4 mcg/mL
== END 2023-06-21 17:45 ==
LOC: ANHED 14:00 → ANH3MEDSUR 16:02
PROVIDERS: Physician Assistant; Admitting Provider Internal Medicine; Emergency Provider Emergency Medicine; PCP Internal Medicine; Visit Provider Internal Medicine
DX: R40.4 Transient alteration of awareness (principal); I65.23 Occlusion and stenosis of bilateral carotid arteries; E78.5 Hyperlipidemia, unspecified; E11.22 Type 2 diabetes mellitus with diabetic chronic kidney disease; N18.9 Chronic kidney disease, unspecified; D32.9 Benign neoplasm of meninges, unspecified; J44.9 Chronic obstructive pulmonary disease, unspecified; I69.351 Hemiplegia and hemiparesis following cerebral infarction affecting right dominant side; G93.89 Other specified disorders of brain; F32.A Depression, unspecified; G40.909 Epilepsy, unspecified, not intractable, without status epilepticus; G47.33 Obstructive sleep apnea (adult) (pediatric); E03.9 Hypothyroidism, unspecified; K21.9 Gastro-esophageal reflux disease without esophagitis; I73.9 Peripheral vascular disease, unspecified; G25.81 Restless legs syndrome; Z79.51 Long term (current) use of inhaled steroids; Z66 Do not resuscitate; F17.210 Nicotine dependence, cigarettes, uncomplicated
CPT/HCPCS: 36415; 36600; 70450; 70496; 70498; 70551; 71045; 80048; 80053; 80069; 80177; 80235; 81001; 82805; 82948; 83036; 83605; 83735; 83880; 84443; 84484; 85025; 85610; 85730; 86140; 87040; 93005; 96360; 96361; 96372; 96374; 99285; A9270; G0378; G0379; J1200; J1650; J7030; J7512; Q9967

== ENCOUNTER 2024-07-31 12:52 | Outpatient (CLI) | payer OTHER, SELFPAY ==
--- NOTE | ~2024-07-31 | PE_ITS ---
EXAMINATION: PET skull to mid thigh DATE: 07/31/2024 14:54 INDICATION: Lung mass TECHNIQUE: Blood glucose level was 120 mg/dL. 8.996 mCi of 18-fluorodeoxyglucose (18-FDG) was adminis tered i.v. Low dose computed tomography (CT) images were acquired from the base of the brain to the p roximal thighs for attenuation correction and anatomic localization. Positron emission tomography (PE T) images were acquired in the same distribution beginning 56 minutes after injection. Images includi ng fused PET/CT images were reconstructed in axial, coronal, and sagittal planes. Automated exposure control technique was employed. The dose-length product was 789.18mGy-cm. COMPARISON: None FINDINGS: Head/neck: Region of encephalomalacia at the lateral left temporal lobe underlying a left temporal occipital crayon sawyer niectomy. Stable appearance of a mass on the left petrous ridge with chronic underlying ostial lysis without increased FDG uptake most likely a meningioma. There is symmetric increased activity in the o ral cavity and ocular muscles without CT correlate, likely physiologic.. Changes of right intraocular lens replacement. No pathologically enlarged cervical lymphadenopathy or suspicious foci of increas ed FDG uptake in the visualized head or neck. Chest: Prominent peripheral increased FDG activity maximum SUV of 17.2 and a 7.4 x 5.0 cm mass at the lingul a suspicious consistent with reported primary lung cancer. There is a central photopenic defect likel y related to central necrosis. There is some consolidation extending more anteroinferiorly into the l ingula which without increased FDG uptake likely related to secondary postobstructive atelectasis or pneumonia. Small dependently layering left pleural effusion. Remainder of the lungs are clear. 3.2 x 2.4 cm FDG avid mass at the left hilum likely related to metastatic disease with maximal SUV of 12.3. There are additional enlarged and FDG avid mediastinal lymph nodes in the AP window and prevascular regions. Bladder measuring up to 3.1 x 2.0 cm with maximal SUV of 8.4. Heart size is normal. No peric ardial effusion. Thoracic aorta is normal in caliber. Abdomen/pelvis/proximal thighs: Physiologic renal accumulation and excretion of FDG activity in the kidneys, bladder and along portio ns of ureters. There is heterogeneous pattern of activity within the bladder which without evident ra diologic correlate on CT potentially related to urine mixing in the bladder but which raises possibil ity of a central filling defect. Normal degree and heterogenous pattern of increased uptake throughou t the liver without radiologic correlate or dominant FDG avid lesion. The gallbladder, pancreas, sple en and bilateral adrenal glands are normal. Mild uptake scattered throughout the bowels without radio logic correlate, also likely physiologic. Normal appendix. No other abnormal foci of increased FDG up take or pathologically enlarged lymphadenopathy in the abdomen, pelvis or proximal thighs. Musculoskeletal: Internal fixation at the proximal right femur. There is a small focus of prominent increased uptake a t the left iliac wing with maximal SUV of 13.9 but which is without a discernible correlate on the CT imaging. No other suspicious lytic, blastic or abnormally FDG avid bone lesions. Increased uptake ov erlying the bilateral greater trochanters consistent with trochanteric bursitis. IMPRESSION: 1. Increased FDG uptake associated with a 7.4 x 5.0 cm mass at the lingula consistent with primary br onchogenic carcinoma. 2. Increased FDG uptake associated with enlarged left hilar and mediastinal lymph nodes consistent wi th metastatic disease. 3. Single focus of prominent bone uptake at the left iliac wing which is suspicious for metastatic di sease but without radiologic correlate on CT. If this would affect clinical management could consider pelvis MRI with contrast to confirm a pathologic marrow replacing process at this location. No other suspicious bone lesions identified. 4. Small left pleural effusion. Reviewed, dictated and finalized at location B. IMPRESSION: 1. Increased FDG uptake associated with a 7.4 x 5.0 cm mass at the lingula cons istent with primary bronchogenic carcinoma. 2. Increased FDG uptake associated with enlarged left hilar and mediastinal lym ph nodes consistent with metastatic disease. 3. Single focus of prominent bone uptake at the left iliac wing which is suspic ious for metastatic disease but without radiologic correlate on CT. If this wou ld affect clinical management could consider pelvis MRI with contrast to confir m a pathologic marrow replacing process at this location. No other suspicious b one lesions identified. 4. Small left pleural effusion.
[2024-07-31 13:15] LABS: Glucose Point of Care 120 mg/dl (65-105)
--- OUTSIDE RECORDS SUMMARY | 2024-07-31 13:21 | XMS_ITS | Encounter Summary ---
Author Organization [facility] Healthcare Address [address] [place] [address] Care Team Providers Care Divisional Storekeeper Name Role Phone Jodi Petersen STEEL FITTER Unavailable Unavailable Joie Polk NP Primary Care Provider [phone] Encounter Details Date Type Department Care Team (Late st Contact Info) Description 03/16/2021 Telephone [facility] - Interventional Radiology [facility] [place] [address] Nadege Kuo RN Social History Tobacco Use Types Packs/Day Years Used Date Smoking Tobacco: Every Day Cigarettes Smokeless Tobacco: Never Alcohol Use Standard Drinks/Week Comments Yes 0 (1 standard drink = 0.6 oz pur e alcohol) Social Connection and Isolat ion Panel [NHANES] Answer Date Recorded In a typical week, how many times do you talk on the phone with family, friends, or neighbors? More than three times a week 03/11/2021 How often do you get togethe r with friends or relatives? Twice a week 03/11/2021 How often do you attend chur ch or worship services? Never 03/11/2021 Do you belong to any clubs o r organizations such as restorationism groups, unions, fraternal or athletic groups, or school groups? No 03/11/2021 How often do you attend meet ings of the clubs or organizations you belong to? Never 03/11/2021 Are you , , di vorced, , never , or living with a partner? 03/11/2021 AUDIT-C Answer Date Recorded Q1: How often do you have a drink containing alc ohol? Never 08/28/2020 Average Number of Drinks Not on file 021 Frequency of Binge Drinking Not on file 08/14 Overall Financial Resource Strain (CARDIA) Answe r Date Recorded How hard is it for you to pa y for the very basics like food, housing, medical care, and heating? Not very hard 03/11/2021 PHQ-2 Answer Date Recorded PHQ-2 Total Score (If total score is 3 or more points, staff should administer the PHQ-9) 0 01/18/2021 PRAPARE - Transportation Answer Date Re corded In the past 12 months, has l ack of transportation kept you from medical appointments or from getting medications? No 02/15 In the past 12 months, has l ack of transportation kept you from meetings, work, or from getting things needed for daily living? No 03/11/2021 Comments No Sex and Gender Information Value Date Recorded Sex Assigned at Not on file Legal Sex Female 11:50 AM [employer] Gender Identity Not on file Sexual Orientation Not on file documented as of this encounter Plan of Treatment Not on file documented as of this encounter Visit Diagnoses Not on filedocumented in this encounter Additional Health Concerns Infection Onset Date Last Indicated Resolved Time MDR gram neg/ESBL 01/14/2021 01/14/2021 documented as of this encounter Care Teams Divisional Storekeeper Relationship Specialty Start Date End Date Joie Polk NP [address] [place] [address] PCP - General 06/24/20 Jodi Petersen, STEEL FITTER Speech Language Pathologist Speech Therapy 03/08/17 documented as of this encounter
--- OUTSIDE RECORDS SUMMARY | 2024-07-31 13:21 | XMS_ITS | Referral Summary ---
Author Organization [facility] Medical Office Building B Address [address] [place] [address] Care Team Providers Care Odd Piece Checker Name Role Phone Jodi Petersen OFFICE ASSISTANT RECEPTIONIST Unavailable Unavailable Joie Polk NP Primary Care Provider [phone] Allergies Active Allergy Reactions Criticality Noted Date Comments Aspirin Ibuprofen Iodine Morphine Penicillins Phenobarbital Phenytoin Sulfa (Sulfonamide Antibiotics) Unknown 02/2020 Tetracycline Unknown 01/14/2021 Trazodone Medications citalopram (CeleXA) 10 mg tablet Take 10 mg by mouth daily Active fenofibrate (TRIGLIDE) 160 mg tabletIndications: mixed hyperlipidemia Take 160 mg by mouth daily Active multivitamin capsule Take 1 capsule by mouth daily Active pramipexole (MIRAPEX) 0.25 mg tablet Take 0.25 mg by mouth nightly Active famotidine (PEPCID) 20 mg tablet Take 20 mg by mouth 2 (two) times a day Active metFORMIN (GLUCOPHAGE) 500 mg tablet Take 500 mg by mouth 2 (two) times a day with meals Active levothyroxine (SYNTHROID) 200 mcg tablet Take 200 mcg by mouth surgical services director before breakfast Active Lactobacillus acidophilus (PROBIOTIC ORAL) Take 1 capsule by mouth daily Active albuterol HFA (PROVENTIL HFA,VENTOLIN HFA,PROAIR HFA) 90 mcg/actuation inhaler Inhale 2 puffs every 4 (four) hours as needed for wheezing Active atorvastatin (LIPITOR) 40 mg tabletIndications: hyperlipidemia Take 1 tablet (40 mg total) by mouth daily 30 tablet 11 2 Active lacosamide (VIMPAT) 200 mg tablet Administer 1 tablet (200 mg total) per feeding tube 2 (two) times a day 2 Active miconazole (SECURA THICK) 2 % cream Apply topically 2 (two) times a day 28.35 g 2 Active levETIRAcetam (KEPPRA) 500 mg tablet Administer per tube 1 tablet (500 mg total) 2 (two) times a day 2 Active clopidogreL (PLAVIX) 75 mg tablet Administer per tube 1 tablet (75 mg total) daily 30 tablet 11 2 Active Active Problems Problem Noted Date Diagnosed Date 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 Cultures are in process. Chronic diarrhea 08/11/2020 Assessment & Plan (08/11/2020 3:13 PM CDT): Colonoscopy and bx and return here Acute bronchitis 08/11/2020 Low back pain 08/11/2020 Blood glucose abnormal 08/11/2020 Diabetes mellitus 08/11/2020 Assessment & Plan (01/15/2021 5:57 AM TRAVEL TICKETING REVIEWER): Patient is on metformin. Will monitor on a sliding scale. Hemorrhage of colon 08/11/2020 Herpes zoster 08/11/2020 Hyperlipidemia 08/11/2020 Assessment & Plan (01/15/2021 5:57 AM TRAVEL TICKETING REVIEWER): Continue statin Hypothyroidism 08/11/2020 Assessment & Plan (01/15/2021 5:57 AM TRAVEL TICKETING REVIEWER): Continue levothyroxine Intracranial tumor 08/11/2020 Lumbar radiculopathy 08/11/2020 Stress incontinence of urine 08/11/2020 Syncope 08/11/2020 Family history of colon cancer in mother 021 Overview (08/11/2020): Added automatically from request for surgery [id number] History of colon polyps 08/11/2020 Overview (08/11/2020): Added automatically from request for surgery [id number] Diarrhea 08/11/2020 Overview (08/11/2020): Added automatically from request for surgery [id number] Fracture, intertrochanteric, right femur 021 Therapeutic drug monitoring 11/09/2016 Dysphagia 11/09/2016 Assessment & Plan (08/11/2020 3:15 PM CDT): Intermittent dysphagia so giselle egd Hypersomnia with sleep apnea 06/11/2011 Overview (05/21/2016): Hypersomnia with sleep apnea Obstructive sleep apnea syndrome in adult 2011 Overview (05/21/2016): Obstructive sleep apnea syndrome in adult Vitamin D deficiency 05/11/2011 Overview (05/21/2016): Vitamin D deficiency Epilepsy 03/30/2011 Overview (05/21/2016): Epilepsy Assessment & Plan (01/15/2021 5:57 AM TRAVEL TICKETING REVIEWER): Continue Vimpat. Seizure precautions. Unsteady gait 03/30/2011 Overview (05/21/2016): Gait instability Disorder of peripheral nervous system 03/30/2011 Overview (05/21/2016): Peripheral neuropathy Assessment & Plan (01/15/2021 5:57 AM TRAVEL TICKETING REVIEWER): Continue gabapentin Cervical myelopathy ([facility]) 03/30/2011 Overview (05/21/2016): Cervical myelopathy Headache disorder 03/30/2011 Overview (05/21/2016): Chronic daily headache Assessment & Plan (01/15/2021 5:58 AM TRAVEL TICKETING REVIEWER): Will hold tramadol until patient is more alert Benign neoplasm of meninges 03/30/2011 Overview (05/21/2016): Meningioma Meningioma (CMS/HCC) 04/07/2010 Visual field defect 04/07/2010 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 Patient has a T-max of a 100.8 with a leukocytosis of 15.7. Patient has positive nitrites with 11-20 wbc's and 4+ bacteria along with suprapubic tenderness. Continue antibiotics. Immunizations Immunization Administration Dates Next Due Pfizer SARS-CoV-2 Monovalent Vaccination (12+ Yrs) PURPLE 04/11/2020,03/19/2020 Social History Tobacco Use Types Packs/Day Years [...] 03/11/2021 How often do you attend chur or baptism services? Never 03/11/2021 Do you belong to any clubs o r organizations such as latter-day groups, unions, fraternal or athletic groups, or [...] on file Legal Sex Female 11:50 AM TRAVEL TICKETING REVIEWER Gender Identity Not on file Sexual Orientation Not on file Last Filed Vital Signs Vital Sign Reading Time Taken Comments Blood Pressure 125/87 03/20/2021 8:15 PM TRAVEL TICKETING REVIEWER Pulse 82 03/20/2021 8:15 PM TRAVEL TICKETING REVIEWER Temperature 36.7 C (98.1 F) 03/20/2021 8:15 PM TRAVEL TICKETING REVIEWER Respiratory Rate 16 03/20/2021 8:15 PM TRAVEL TICKETING REVIEWER Oxygen Saturation 96% 03/20/2021 8:15 PM TRAVEL TICKETING REVIEWER Inhaled Oxygen Concentration - - Weight 73.1 kg (161 lb 2.5 oz) 03/11/2021 1:10 A M TRAVEL TICKETING REVIEWER Height 167.6 cm (5' 5.98) 03/11/2021 1:10 AM CS T Body Mass Index 26.02 03/11/2021 1:10 AM TRAVEL TICKETING REVIEWER Plan of Treatment Not on file Procedures Procedure Name Priority Date/Time Associated Diagnosis Comments EGFR Routine 03/20/2021 5:38 AM TRAVEL TICKETING REVIEWER HEMOGLOBIN A1C Routine 03/11/2021 1:59 AM TRAVEL TICKETING REVIEWER LIPID PANEL Routine 03/11/2021 1:59 AM TRAVEL TICKETING REVIEWER COLONOSCOPY 08/28/2020 10:57 AM CDT from Last 3 Months or Most Recently Relevant to Health Maintenance Results * eGFR (03/20/2021 5:38 AM TRAVEL TICKETING REVIEWER) eGFR 102 mL/min/1. 73 m2 [facility] Comment: Interpretive Data Reference Interval Normal >/= 90 mL/min/1.73m2 Mildly decreased* 60 - 89 mL/min/1.73m2 Mildly to moderately decreased 45 - 59 mL/min/1.73m2 Moderately to severely decreased 30 - 44 mL/min/1.73m2 Severely decreased 15 - 29 mL/min/1.73m2 Kidney Failure < 15 mL/min/1.73m2 *Relative to young adult level Estimated glomerular filtration rate is determined by the 2020 CKD-EPI equation recommended by the National Kidney Foundation (A Unifying Approach to GFR Estimation: Recommendations of the NKF-ASK Task Force on Reassessing the Inclusion of Race in Diagnosing Kidney Disease, JASN 2020). The CKD-EPI equation should not be used for patients with unstable renal function and has not been validated in children and those over 70. Current interpretive data was last reviewed 2020. Blood 03/20/2021 5:38 AM TRAVEL TICKETING REVIEWER 03/20/2021 6:54 AM TRAVEL TICKETING REVIEWER Lenard Sweeney DO LAB BLOOD ORDERABLES Fi nal Result [facility] [address] Department [place] [address] * (ABNORMAL) Hemoglobin A1c (03/11/2021 1:59 AM TRAVEL TICKETING REVIEWER) Hgb A1C 6.2(H) 4.0 - 5.6 % [facility] Estimated Average Glucose 131 mg/dL [facility] Comment: The ADA recommends reporting an estimated Average Glucose (eAG) with all Hemoglobin A1c results using the equation derived from a study of 507 normal and diabetic adults. Minority populations were underrepresented and children were not included. (Diabetes Care 31:3665-3299, 2008). The eAG is not equivalent to a fasting glucose. Blood 03/11/2021 1:59 AM TRAVEL TICKETING REVIEWER 03/11/2021 2:07 AM TRAVEL TICKETING REVIEWER Khai Parmar MD LAB BLOOD ORDERABLES Final Result [facility] [address] Department [place] [address] * (ABNORMAL) Lipid panel (03/11/2021 1:59 AM TRAVEL TICKETING REVIEWER) Cholesterol 151 30 - 199 mg/dL [facility] Comment: Interpretive Data Ages < or = 19 years Acceptable: <170 mg/dL Borderline high: 170-199 mg/dL High: >or= 200 mg/dL Ages > or = 20 years Desirable: <200 mg/dL Borderline high: 200-239 mg/dL High: >or= 240 mg/dL Literature References: 1. Expert Panel on Integrated Guidelines for Cardiovascular Health and Risk Reduction in Children and Adolescents. Pediatrics 2011;128:S213 2. NCEP Expert Panel. Circulation 2004;110:227 Current Interpretive Data was last revised on 2017. Triglycerides 188(H) <=149 mg/dL [facility] Comment: Interpretive Data Ages < or = 9 years Acceptable: <75 mg/dL Borderline high: 75-99 mg/dL High: >or= 100 mg/dL Ages 10 to 20 years Acceptable: <90 mg/dL Borderline high: 90-129 mg/dL High: >or= 130 mg/dL Ages > or = 20 years Desirable: <150 mg/dL Borderline high: 150-199 mg/dL High: 200-499 mg/dL Very high: >or= 499 mg/dL Literature References: 1. Expert Panel on Integrated Guidelines for Cardiovascular Health and Risk Reduction in Children and Adolescents. Pediatrics 2011;128:S213 2. NCEP Expert Panel. Circulation 2004;110:227 Current Interpretive Data was last revised on 2017. HDL 35(L) >=40 mg/dL [facility] Comment: Interpretive Data Ages < or = 19 years Acceptable: >45 mg/dL Borderline low: 40-45 mg/dL Low: <40 mg/dL Ages > or = 20 years Desirable: >or= 60 mg/dL Low: <40 mg/dL Literature References: 1. Expert Panel on Integrated Guidelines for Cardiovascular Health and Risk Reduction in Children and Adolescents. Pediatrics 2011;128:S213 2. NCEP Expert Panel. Circulation 2004;110:227 Current Interpretive Data was last revised on 2017. LDL, calculated 78 <=129 mg/dL [facility] Comment: Interpretive Data Ages < or = 19 years Acceptable: <110 mg/dL Borderline high: 110-129 mg/dL High: >or= 130 mg/dL Ages > or = 20 years Optimal: <100 mg/dL Near optimal: 100-129 mg/dL Borderline high: 130-159 mg/dL High: >160 mg/dL Literature References: 1. Expert Panel on Integrated Guidelines for Cardiovascular Health and Risk Reduction in Children and Adolescents. Pediatrics 2011;128:S213 2. NCEP Expert Panel. Circulation 2004;110:227 Current Interpretive Data was last revised on 2017. Non-HDL Cholesterol 116 mg/dL [facility] Comment: Interpretive Data Ages < or = 19 years Acceptable: <120 mg/dL Borderline high: 120-144 mg/dL High: >145 mg/dL Ages > or = 20 years When triglycerides are >200 mg/dL, Non-HDL cholesterol is a secondary target of therapy with treatment goals that are 30 mg/dL greater than the LDL cholesterol target. Literature References: 1. Expert Panel on Integrated Guidelines for Cardiovascular Health and Risk Reduction in Children and Adolescents. Pediatrics 2011;128:S213 2. NCEP Expert Panel. Circulation 2004;110:227 Current Interpretive Data was last revised on 2017. Chol/HDL ratio 4 [facility] Blood 03/11/2021 1:59 AM TRAVEL TICKETING REVIEWER 03/11/2021 2:07 AM TRAVEL TICKETING REVIEWER us Khai Parmar MD LAB BLOOD ORDERABLES Final Result [facility] [address] Department [place] [address] * COLONOSCOPY (08/28/2020 10:57 AM CDT) Anatomical Region Laterality Modality Other Narrative Procedure Note Calixto Tapia MD - 08/28/2020 10:57 AM CDT [facility] Patient Name: Summer Whitaker Procedure Date: 08/28/2020 10:57 AM Date of : 1950 Admit Type: Outpatient Age: 70 Gender: Female Attending MD: Calixto Tapia M.D. Room: [facility] ENDOSCOPY ROOM 2 Note Status: Finalized Patient Profile: Refer to note in patient chart for documentation of history and physical. Procedure: Colonoscopy Indications: High risk colon cancer surveillance: Personalhistory of colonic polyps, Family history of colon cancerin a first-degree relative before age 60 years, Last colonoscopy: 2015, Incidental - Chronic diarrhea Referring MD: Fe LarsenNDemetriaPDemetria Providers: Calixto Tapia M.D. Impression: - Hemorrhoids found on perianal exam. - Diverticulosis in the sigmoid colon, in the transverse colon, at the hepatic flexure and in the ascending colon. - The entire examined colon is normal. Biopsied. - The examination was otherwise normal. Recommendation: - Discharge patient to home. - Resume previous diet. - Continue present medications. - Await pathology results. - Repeat colonoscopy in 5 years for surveillance. - Return to primary care physician as previously scheduled. Medicines: Propofol per Anesthesia Complications: No immediate complications. Estimated Blood Loss: Estimated blood loss: none. Procedure: Pre-Anesthesia Assessment: - This assessment was completed [Time ofAssessment] prior to the administration of sedation. - This assessment was completed [Time ofAssessment] prior to the administration of sedation. The benefits, risks and alternatives of theprocedure and sedation were discussed and informed consentwas obtained. All questions were answered. Please referto the signed informed consent document in the medical record. The bowel preparation used was Miralax via single dose instruction. The bowel preparation used was bisacodyl tablets via single dose instruction.The scope was passed under direct vision. TheColonoscope [id number] was introduced through the anus and advanced to the the cecum, identified by appendiceal orifice and ileocecal valve. The colonoscopy was performed without difficulty. The patient tolerated the procedure well. The qualityof the bowel preparation was adequate to identifypolyps 6 mm and larger in size. Findings: Hemorrhoids were found on perianal exam. Multiple small and large-mouthed diverticula were found in thesigmoid colon, transverse colon, hepatic flexure and ascending colon. The colon (entire examined portion) appeared normal. Biopsies for histology were taken with a cold forceps from the ascending colon for evaluation of microscopic colitis. Verification of patient identification for the specimen was done by the physician and nurse using the patient's name and date. Estimated blood loss was minimal. The exam was otherwise without abnormality. Electronically signed by Calixto Tapia M.D. Calixto Tapia M.D. 08/28/2020 12:18:33 PM Number of Addenda: 0 Note Initiated On: 08/28/2020 10:57 AM Procedure Code(s): --- Professional --- 51547, Colonoscopy, flexible; with biopsy, single or multiple CPT copyright 2019 [employer]. All rights reserved. The codes documented in this report are preliminary and upon archival studies professor reviewmay be revised to meet current compliance requirements. Recognized by the [employer] [employer] for promoting quality in endoscopy us Calixto Tapia MD ENDOSCOPY PROCEDURES Final Re sult from Last 3 Months or Most Recently Relevant to Health Maintenance Additional Health Concerns Infection Onset Date Last Indicated MDR gram neg/ESBL 01/14/2021 01/14/[address] [place] [address] [facility] Advance Directives For more information, please contact: [phone] Documents on File Type Date Recorded Patient Senior Risk Manager Expl anation ADVANCE DIRECTIVE 03/23/2021 8:03 AM POLST - Phys Order for PT Preferences Advance Directives and Living Will 03/18/2021 9:30 AM ADVANCE DIRECTIVE 01/21/2021 6:38 AM Power of Preassembler And Inspector-Medical ADVANCE DIRECTIVE 01/15/2021 10:43 AM DNR * LIMITED - No CPR (Latest Code Status on File) Date Activated Date Inactivated Comments 03/13/2021 10:14 AM 03/21/2021 5:18 AM Question Answer Comments Provide aggressive medical m anagement before a full cardiopulmonary arrest occurs. Use antibiotics, IV Fluids, and medical treatment unless specifically selected below: No intubation * Full Code Date Activated Date Inactivated Comments 03/11/2021 1:02 AM 03/13/2021 10:14 AM * LIMITED - No CPR Date Activated Date Inactivated Comments 01/15/2021 5:56 AM 01/19/2021 9:09 PM Question Answer Comments Provide aggressive medical m anagement before a full cardiopulmonary arrest occurs. Use antibiotics, IV Fluids, and medical treatment unless specifically selected below: No intubationNo non-invasive ventilationNo cardioversionNo internal / external pacemakerNo vasopressors * Full Code Date Activated Date Inactivated Comments 08/28/2020 10:55 AM 08/28/2020 5:33 PM * Full Code Date Activated Date Inactivated Comments 08/28/2020 10:55 AM 08/28/2020 10:55 AM Care Teams Odd Piece Checker Relationship Specialty Start Date End Date Joie Polk NP [address] [place] [address] PCP - General 06/24/20 Jodi Petersen, OFFICE ASSISTANT RECEPTIONIST Speech Language Pathologist Speech Therapy 03/08/17
--- OUTSIDE RECORDS SUMMARY | 2024-07-31 13:21 | XMS_ITS | Encounter Summary ---
Author Organization [facility] Healthcare Address [address] [place] [address] Care Team Providers Care Life Cycle Assessment Analyst Name Role Phone Jodi Petersen CNC PROGRAMMER Unavailable Unavailable Joie Polk NP Primary Care Provider [phone] Encounter Details Date Type Department Care Team (Late st Contact Info) Description 03/17/2021 Telephone [facility] - Interventional Radiology [facility] [place] [address] Nadege Kuo RN Social History [...] often do you attend chur ch or taoism services? Never 03/11/2021 Do you belong to any clubs o r organizations such as congregational groups, unions, fraternal or athletic groups, or [...] on file Legal Sex Female 11:50 AM TIN ASSORTER Gender Identity Not on file Sexual Orientation Not on file documented as of this encounter Plan of Treatment Not on file documented as of this encounter Visit Diagnoses Not on filedocumented in this encounter Additional Health Concerns Infection Onset Date Last Indicated Resolved Time MDR gram neg/ESBL 01/14/2021 01/14/2021 documented as of this encounter Care Teams Life Cycle Assessment Analyst Relationship Specialty Start Date End Date Joie Polk NP [address] [place] [address] PCP - General 06/24/20 Jodi Petersen, CNC PROGRAMMER Speech Language Pathologist Speech Therapy 03/08/17 documented as of this encounter
--- OUTSIDE RECORDS SUMMARY | 2024-07-31 13:21 | XMS_ITS | Clinical Summary ---
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 Cultures are in process. Chronic diarrhea 08/11/2020 Assessment & Plan (08/11/2020 3:13 PM CDT): Colonoscopy and bx and return here Acute bronchitis 08/11/2020 Low back pain 08/11/2020 Blood glucose abnormal 08/11/2020 Diabetes mellitus 08/11/2020 Assessment & Plan (01/15/2021 5:57 AM COMMUNITY RELATIONS OFFICER): Patient is on metformin. Will monitor on a sliding scale. Hemorrhage of colon 08/11/2020 Herpes zoster 08/11/2020 Hyperlipidemia 08/11/2020 Assessment & Plan (01/15/2021 5:57 AM COMMUNITY RELATIONS OFFICER): Continue statin Hypothyroidism 08/11/2020 Assessment & Plan (01/15/2021 5:57 AM COMMUNITY RELATIONS OFFICER): Continue levothyroxine Intracranial tumor 08/11/2020 Lumbar radiculopathy 08/11/2020 Stress incontinence of urine 08/11/2020 Syncope 08/11/2020 Family history of colon cancer in mother 021 Overview (08/11/2020): Added automatically from request for surgery [id number] History of colon polyps 08/11/2020 Overview (08/11/2020): Added automatically from request for surgery [id number] Diarrhea 08/11/2020 Overview (08/11/2020): Added automatically from request for surgery [id number] Fracture, intertrochanteric, right femur 021 Therapeutic drug [...] Epilepsy Assessment & Plan (01/15/2021 5:57 AM COMMUNITY RELATIONS OFFICER): Continue Vimpat. Seizure precautions. Unsteady gait 03/30/2011 Overview (05/21/2016): Gait instability Disorder of peripheral nervous system 03/30/2011 Overview (05/21/2016): Peripheral neuropathy Assessment & Plan (01/15/2021 5:57 AM COMMUNITY RELATIONS OFFICER): Continue gabapentin Cervical myelopathy ([facility]) 03/30/2011 Overview (05/21/2016): Cervical myelopathy Headache disorder 03/30/2011 Overview (05/21/2016): Chronic daily headache Assessment & Plan (01/15/2021 5:58 AM COMMUNITY RELATIONS OFFICER): Will hold tramadol until patient is more alert Benign neoplasm of meninges 03/30/2011 Overview (05/21/2016): Meningioma Meningioma (CMS/HCC) 04/07/2010 Visual field defect 04/07/2010 Ischemic optic neuropathy 04/07/2010 Bronchial asthma 04/07/2010 Resolved Problems Problem Noted Date Diagnosed Date Resolved Date Acute encephalopathy 01/14/2021 021 Assessment & Plan (01/15/2021 5:58 AM COMMUNITY RELATIONS OFFICER): Suspect this is secondary to urinary tract infection. Patient has a T-max of a 100.8 with a leukocytosis of 15.7. Patient has positive nitrites with 11-20 wbc's and 4+ bacteria along with suprapubic tenderness. Continue antibiotics. Immunizations Immunization Administration Dates Next Due Pfizer SARS-CoV-2 Monovalent Vaccination (12+ Yrs) PURPLE 04/11/2020,03/19/2020 Surgical History Surgery Date Site/Laterality Comments HYSTERECTOMY Hysterectomy THYROIDECTOMY Thyroidectomy CATARACT EXTRACTION Cataract extraction IR G TUBE PLACEMENT PERCUTANEOUS 03/17/2021 N/A Medical History Medical History Date Comments Asthma Asthma Disorder of thyroid Thyroid dise ase Depression Depression Seizure disorder (HCC) Seizure d isorder Intracranial tumor (HCC) brain t umor Intracranial tumor (HCC) 1993 Brain T umor Hx Other Medical Cataracts Chronic obstructive pulmonary disease (HCC) COPD Hx Other Medical Headache, migra ine Hyperlipidemia Hyperlipidemia Family History Medical History Relation Name Comments Esophageal cancer Father Cancer -es ophageal; Scoliosis Father Scoliosis; Cancer Mother Cancer; Colon cancer Mother Cancer -colon; Diabetes Mother Diabetes mellit us; Heart disease Mother Heart disease; Hypertension Mother Hypertension; Migraines Mother Migraine; Stroke Mother Stroke; Diabetes Other 1 Diabetes mellit us; Hypertension Other 2 Hypertension; Heart attack Other 3 Myocardial infa rction; Hypertension Other 4 Family history of Hypertension; Migraines Other 5 Family history of Migraine; Seizures Other 6 Family history of Seizure disorder; Hypertension Sister Hypertension; Relation Name Status Comments Father Mother Other 1 Other 2 Other 3 Other 4 Other 5 Other 6 Sister Social History Tobacco Use Types Packs/Day Years [...] often do you attend chur ch or sikhism services? Never 03/11/2021 Do you belong to any clubs o r organizations such as hinduism groups, unions, fraternal or athletic groups, or [...] on file Legal Sex Female 11:50 AM COMMUNITY RELATIONS OFFICER Gender Identity Not on file Sexual Orientation Not on file Obstetrics History Last Filed Vital Signs Vital Sign Reading Time Taken Comments Blood Pressure 125/87 03/20/2021 8:15 PM COMMUNITY RELATIONS OFFICER Pulse 82 03/20/2021 8:15 PM COMMUNITY RELATIONS OFFICER Temperature 36.7 C (98.1 F) 03/20/2021 8:15 PM COMMUNITY RELATIONS OFFICER Respiratory Rate 16 03/20/2021 8:15 PM COMMUNITY RELATIONS OFFICER Oxygen Saturation 96% 03/20/2021 8:15 PM COMMUNITY RELATIONS OFFICER Inhaled Oxygen Concentration - - Weight 73.1 kg (161 lb 2.5 oz) 03/11/2021 1:10 A M COMMUNITY RELATIONS OFFICER Height 167.6 cm (5' 5.98) 03/11/2021 1:10 AM CS T Body Mass Index 26.02 03/11/2021 1:10 AM COMMUNITY RELATIONS OFFICER Plan of Treatment Health Maintenance Due Date Last Done Comments Albumin Creatinine Ratio, Urine 1950 Breast Cancer Screening-Mammogram 1950 Hepatitis C Screening 1950 Osteoporosis Screening-Bone Density Scan 1950 Dilated Eye Exam 1950 Foot Exam 1950 DTaP/Tdap/Td Vaccine (1 - Tdap) 05/24/1962 Hepatitis B Screening 05/24/1969 Pneumococcal vaccine 65+ (1 of 2 - PCV) 05/24/1970 Zoster Vaccine (1 of 2) 05/24/2001 Well Visit 65+ 05/24/2016 Hemoglobin A1C 09/08/2021 03/11/2021 Depression Screening 01/14/2022 01/14/2021 Fall Risk Assessment 03/20/2022 03/20/2021 eGFR 03/20/2022 03/20/2021, 04/2021, 03/18/2021, Additional history exists Lipid Panel 11/10/2022 11/10/2021, 03/11/2021 Covid-19 Vaccine (5 - 2023-2 5 season) 2023 12/03/2021, 12/17/2020, 04/11/2020, Additional history exists Influenza Vaccine (Season Ended) 2024 11/12/19 22, 12/02/2020 Colon Cancer Screening-Colonoscopy 08/28/2030 08/28/2020 Colon Cancer Screening-CT Colonography Discontinued 08/28/2020 Colon Cancer Screening-DNA Stool Discontinued 08/29/19 Colon Cancer Screening-FIT Discontinued 08/28/2020 Colon Cancer Screening-Sigmoidoscopy Discontinued 08/28/2020 Procedures Procedure Name Priority Date/Time Associated Diagnosis Comments EGFR Routine 03/20/2021 5:38 AM COMMUNITY RELATIONS OFFICER HEMOGLOBIN A1C Routine 03/11/2021 1:59 AM COMMUNITY RELATIONS OFFICER LIPID PANEL Routine 03/11/2021 1:59 AM COMMUNITY RELATIONS OFFICER COLONOSCOPY 08/28/2020 10:57 AM CDT from Last 3 Months or Most Recently Relevant to Health Maintenance Results * eGFR (03/20/2021 5:38 AM COMMUNITY RELATIONS OFFICER) eGFR 102 mL/min/1. 73 m2 [facility] Comment: Interpretive Data Reference Interval Normal >/= [...] last reviewed 2020. Blood 03/20/2021 5:38 AM COMMUNITY RELATIONS OFFICER 03/20/2021 6:54 AM COMMUNITY RELATIONS OFFICER us Lenard Sweeney DO LAB BLOOD ORDERABLES Fi nal Result [facility] [address] Department [place] [address] * (ABNORMAL) Hemoglobin A1c (03/11/2021 1:59 AM COMMUNITY RELATIONS OFFICER) Hgb A1C 6.2(H) 4.0 - 5.6 % [facility] Estimated Average Glucose 131 mg/dL [facility] Comment: The ADA recommends reporting an estimated Average Glucose (eAG) with all Hemoglobin A1c results using the equation derived from a study of 507 normal and diabetic adults. Minority populations were underrepresented and children were not included. (Diabetes Care 31:5155-0313, 2008). The eAG is not equivalent to a fasting glucose. Blood 03/11/2021 1:59 AM COMMUNITY RELATIONS OFFICER 03/11/2021 2:07 AM COMMUNITY RELATIONS OFFICER Khai Parmar MD LAB BLOOD ORDERABLES Final Result [facility] [address] Department [place] [address] * (ABNORMAL) Lipid panel (03/11/2021 1:59 AM COMMUNITY RELATIONS OFFICER) Cholesterol 151 30 - 199 mg/dL [facility] Comment: Interpretive Data Ages < or = [...] revised on 2017. Triglycerides 188(H) <=149 mg/dL [facility] Comment: Interpretive Data Ages < or = [...] revised on 2017. HDL 35(L) >=40 mg/dL [facility] Comment: Interpretive Data Ages < or = [...] on 2017. LDL, calculated 78 <=129 mg/dL [facility] Comment: Interpretive Data Ages < or = [...] revised on 2017. Non-HDL Cholesterol 116 mg/dL [facility] Comment: Interpretive Data Ages < or = [...] last revised on 2017. Chol/HDL ratio 4 [facility] Blood 03/11/2021 1:59 AM COMMUNITY RELATIONS OFFICER 03/11/2021 2:07 AM COMMUNITY RELATIONS OFFICER us Khai Parmar MD LAB BLOOD ORDERABLES Final Result [facility] [address] Department [place] [address] * COLONOSCOPY (08/28/2020 10:57 AM CDT) Anatomical Region Laterality Modality Other Narrative Procedure Note Calixto Tapia MD - 08/28/2020 10:57 AM CDT [facility] Patient Name: Summer Whitaker Procedure Date: 08/28/2020 10:57 AM Date of : 1950 Admit Type: Outpatient Age: 70 Gender: Female Attending MD: Calixto Tapia M.D. Room: [facility] ENDOSCOPY ROOM 2 Note Status: Finalized Patient Profile: Refer to note in patient chart for documentation of history and physical. Procedure: Colonoscopy Indications: High risk colon cancer surveillance: Personalhistory of colonic polyps, Family history of colon cancerin a first-degree relative before age 60 years, Last colonoscopy: 2015, Incidental - Chronic diarrhea Referring MD: Joie Polk, Vivian.N.P. Providers: Calixto Tapia M.D. Impression: - Hemorrhoids [...] scope was passed under direct vision. TheColonoscope [id number] was introduced through the anus and advanced [...] 10:57 AM Procedure Code(s): --- Professional --- 59939, Colonoscopy, flexible; with biopsy, single or multiple CPT copyright 2019 [employer]. All rights reserved. The codes documented in this report are preliminary and upon photogrammetric compilation specialist reviewmay be revised to meet current compliance requirements. 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
== END 2024-07-31 12:53 | disposition home or self-care (01) ==
DX: R91.8 Other nonspecific abnormal finding of lung field (principal); J90 Pleural effusion, not elsewhere classified
CPT/HCPCS: 78815; A9552